=== PATIENT | male | born 1945 | race Caucasian/White ===

== ENCOUNTER 2021-08-08 11:47 | Inpatient (IN) | payer OTHER ==
[2021-08-08] MEDS ORDERED: SODIUM CHLORIDE 0.9% 500 ML INFUS.BAG IV ONE (15:22)
[2021-08-08 15:27] LABS: BASO % 0.1 % (0-2.0); HEMATOCRIT 41.3 % (35.4-49); HEMOGLOBIN 14.2 GM/dL (11.7-16.9); LYMPH % 3.5 % (8-40); MCH 30.7 pg (25.7-33.7); MCHC 34.3 g/dl (32.0-35.9); MEAN CELL VOLUME 89.5 fl (80-96); MEAN PLT VOLUME 8.8 fl (7.5-11.1); MONO % 5.6 % (3.8-10.2); NEUT % 90.8 % (42.8-82.8); PLATELET COUNT 193 10^3/uL (134-434); RBC 4.61 M/mm3 (4.00-5.60); RDW 13.4 % (11.9-15.9); WHITE BLOOD COUNT 15.3 K/mm3 (4.0-10.0)
[2021-08-08 15:41] LABS: ALBUMIN 3.9 g/dl (3.4-5.0); CALCIUM 9.6 mg/dL (8.5-10.1)
[2021-08-08 15:42] LABS: BLOOD UREA NITROGEN 26.7 mg/dL (7-18); MAGNESIUM 2.6 mg/dL (1.8-2.4)
[2021-08-08 15:44] LABS: CREATININE 0.9 mg/dL (0.55-1.3)
[2021-08-08 15:45] LABS: PHOSPHOROUS 3.1 mg/dL (2.5-4.9)
[2021-08-08 15:46] LABS: BILIRUBIN,TOTAL 0.7 mg/dL (0.2-1); TOT PROT 7.7 g/dl (6.4-8.2)
[2021-08-08] MEDS ORDERED: ACETAMINOPHEN 1000 MG/100 ML BAG IVPB ONE (19:00)
[2021-08-08] MEDS ORDERED: CEFTRIAXONE 2,000 MG in DEXTROSE 5%-WATER - 50 ML IVPB ONE (19:14)
[2021-08-08] MEDS ORDERED: VANCOMYCIN 1,000 MG in DEXTROSE 5%-WATER - 250 ML IVPB ONE (19:14)
[2021-08-08] MEDS ORDERED: AMPICILLIN - 2 GM in SODIUM CHLORIDE 100 ML IVPB ONE (19:16)
[2021-08-08] MEDS ORDERED: ACYCLOVIR INJECTION 800 MG in DEXTROSE 5%-WATER - 100 ML IVPB ONE (19:18)
[2021-08-08] MEDS ORDERED: DEXAMETHASONE SOD PHOSPHATE 10 MG/1 ML VIAL IVPUSH ONE (19:19)
[2021-08-08 19:26] LABS: EPI CELLS 25 /uL (0-25.1); HYALINE CASTS 1 /uL (0-3.1); PH,URINE 6.5 (5.0-8.0); URINE APPEARANCE CLEAR; URINE BACTERIA >9,000 /uL (0-1359); URINE BILIRUBIN NEGATIVE (NEGATIVE); URINE COLOR YELLOW; URINE GLUCOSE (UA) NEGATIVE (NEGATIVE); URINE KETONE 1+ (NEGATIVE); URINE LEUK ESTERASE TRACE (NEGATIVE); URINE NITRITE NEGATIVE (NEGATIVE); URINE PROTEIN 1+ (NEGATIVE); URINE RBC 151 /uL (0-23.9); URINE WBC 34 /uL (0-25.8)
[2021-08-08] MEDS ORDERED: ACYCLOVIR INJECTION 800 MG in DEXTROSE 5%-WATER - 250 ML IVPB ONE (19:30)
[2021-08-08] MEDS ORDERED: ACETAMINOPHEN INJECTION 100 ML IVPB ONE (19:46)
[2021-08-08] MEDS ORDERED: DEXAMETHASONE SOD PHOSPHATE 10 MG/1 ML VIAL ONE (21:55)
[2021-08-08] MEDS ORDERED: CEFTRIAXONE 2 GM/100 ML BAG IVPB ONE (21:56)
[2021-08-08] MEDS ORDERED: AMPICILLIN SODIUM 2 GM VIAL ONE (23:05)
[2021-08-08] MEDS ORDERED: VANCOMYCIN 1 GRAM (PRE-DOCKED) 1,000 MG/250 ML BAG IVPB ONE (23:06)
[2021-08-09] MEDS: ACYCLOVIR INJECTION 800 MG in DEXTROSE 5%-WATER - 250 ML IVPB SCH ×3 (01:00→20:11)
[2021-08-09] MEDS: AMPICILLIN - 2 GM in SODIUM CHLORIDE 100 ML IVPB SCH ×6 (01:00→21:59)
[2021-08-09] MEDS ORDERED: AMPICILLIN SODIUM 2 GM VIAL ONE ×4 (05:27→21:47)
[2021-08-09] MEDS ORDERED: SODIUM CHLORIDE 100 ML IVPB ONE ×4 (05:27→21:47)
[2021-08-09 07:15] LABS: HEMATOCRIT 35.4 % (35.4-49); HEMOGLOBIN 12.4 GM/dL (11.7-16.9); MCH 31.3 pg (25.7-33.7); MEAN CELL VOLUME 89.4 fl (80-96); MEAN PLT VOLUME 8.5 fl (7.5-11.1); PLATELET COUNT 161 10^3/uL (134-434); RBC 3.96 M/mm3 (4.00-5.60); RDW 13.5 % (11.9-15.9); WHITE BLOOD COUNT 16.1 K/mm3 (4.0-10.0)
[2021-08-09 07:45] LABS: CALCIUM 8.9 mg/dL (8.5-10.1)
[2021-08-09 07:46] LABS: BLOOD UREA NITROGEN 19.8 mg/dL (7-18); MAGNESIUM 2.5 mg/dL (1.8-2.4)
[2021-08-09 07:49] LABS: CREATININE 0.8 mg/dL (0.55-1.3); PHOSPHOROUS 2.4 mg/dL (2.5-4.9)
[2021-08-09 07:51] LABS: BILIRUBIN,TOTAL 0.5 mg/dL (0.2-1); TOT PROT 6.1 g/dl (6.4-8.2)
[2021-08-09 07:54] LABS: ALBUMIN 2.9 g/dl (3.4-5.0)
[2021-08-09] MEDS ORDERED: SODIUM CHLORIDE 1,000 ML IV SCH (08:00)
[2021-08-09 08:50] LABS: ANISOCYTOSIS 1+; MACROCYTOSIS 0
[2021-08-09] MEDS ORDERED: DEXTROSE 5%-WATER 100 ML IVPB ONE ×2 (09:19→21:49)
[2021-08-09] MEDS: SODIUM CHLORIDE 1,000 ML IV SCH (09:33)
[2021-08-09] MEDS ORDERED: VANCOMYCIN 1 GM in D5W (PRE-DOCKED) 1,000 MG/250 ML IVPB SCH ×2 (10:00→22:00)
[2021-08-09] MEDS: CEFTRIAXONE 2 GM in DEXTROSE 5%-WATER 100 ML IVPB SCH ×2 (10:30→22:00)
[2021-08-09] MEDS: ENOXAPARIN NA (PORCINE) 40 MG/0.4 ML DISP.SYRIN SQ SCH ×2 (11:28→13:45)
[2021-08-09] MEDS: VANCOMYCIN 1 GM/200 ML PREMIX BAG IVPB SCH (16:26)
[2021-08-09] MEDS ORDERED: HALOPERIDOL LACTATE 5 MG/ML IM ONE (21:35)
[2021-08-10] MEDS: VANCOMYCIN 1 GM/200 ML PREMIX BAG IVPB SCH (01:27)
[2021-08-10] MEDS ORDERED: AMPICILLIN SODIUM 2 GM VIAL ONE ×6 (02:50→21:29)
[2021-08-10] MEDS ORDERED: SODIUM CHLORIDE 100 ML IVPB ONE ×6 (02:50→21:29)
[2021-08-10] MEDS: ACYCLOVIR INJECTION 800 MG in DEXTROSE 5%-WATER - 250 ML IVPB SCH ×3 (02:54→18:34)
[2021-08-10] MEDS: AMPICILLIN - 2 GM in SODIUM CHLORIDE 100 ML IVPB SCH ×6 (02:54→22:31)
[2021-08-10] MEDS ORDERED: DEXTROSE 5%-WATER 100 ML IVPB ONE ×2 (08:38→21:29)
[2021-08-10 08:50] LABS: BASO % 0.1 % (0-2.0); HEMATOCRIT 34.8 % (35.4-49); HEMOGLOBIN 12.2 GM/dL (11.7-16.9); LYMPH % 6.7 % (8-40); MCH 31.4 pg (25.7-33.7); MCHC 35.1 g/dl (32.0-35.9); MEAN CELL VOLUME 89.4 fl (80-96); MEAN PLT VOLUME 8.4 fl (7.5-11.1); NEUT % 86.2 % (42.8-82.8); PLATELET COUNT 161 10^3/uL (134-434); RBC 3.89 M/mm3 (4.00-5.60); RDW 13.2 % (11.9-15.9); WHITE BLOOD COUNT 10.1 K/mm3 (4.0-10.0)
[2021-08-10] MEDS: SODIUM CHLORIDE 1,000 ML IV SCH (08:54)
[2021-08-10] MEDS: ENOXAPARIN NA (PORCINE) 40 MG/0.4 ML DISP.SYRIN SQ SCH (09:00)
[2021-08-10 09:03] LABS: CALCIUM 8.7 mg/dL (8.5-10.1)
[2021-08-10 09:04] LABS: ALBUMIN 2.9 g/dl (3.4-5.0); MAGNESIUM 2.4 mg/dL (1.8-2.4)
[2021-08-10 09:07] LABS: CREATININE 0.8 mg/dL (0.55-1.3); PHOSPHOROUS 2.2 mg/dL (2.5-4.9)
[2021-08-10 09:09] LABS: BILIRUBIN,TOTAL 0.4 mg/dL (0.2-1)
[2021-08-10] MEDS ORDERED: POTASSIUM CHLORIDE ORAL LIQUID 20 MEQ/15 ML PO ONE (09:12)
[2021-08-10] MEDS: CEFTRIAXONE 2 GM in DEXTROSE 5%-WATER 100 ML IVPB SCH ×2 (10:30→22:31)
[2021-08-10] MEDS ORDERED: NAPH,MB-DB/K PH,MBDB POWDER PACKET PO ONE (14:16)
[2021-08-11] MEDS: ACYCLOVIR INJECTION 800 MG in DEXTROSE 5%-WATER - 250 ML IVPB SCH ×3 (01:15→18:13)
[2021-08-11] MEDS: AMPICILLIN - 2 GM in SODIUM CHLORIDE 100 ML IVPB SCH ×6 (01:15→21:36)
[2021-08-11] MEDS ORDERED: AMPICILLIN SODIUM 2 GM VIAL ONE ×5 (05:32→21:26)
[2021-08-11] MEDS ORDERED: SODIUM CHLORIDE 100 ML IVPB ONE ×5 (05:32→21:27)
[2021-08-11 08:42] LABS: BASO % 0.1 % (0-2.0); EOS % 0.1 % (0-4.5); HEMATOCRIT 37.4 % (35.4-49); HEMOGLOBIN 12.6 GM/dL (11.7-16.9); LYMPH % 9.7 % (8-40); MCH 30.5 pg (25.7-33.7); MCHC 33.8 g/dl (32.0-35.9); MEAN CELL VOLUME 90.3 fl (80-96); MEAN PLT VOLUME 8.8 fl (7.5-11.1); MONO % 9.6 % (3.8-10.2); NEUT % 80.5 % (42.8-82.8); PLATELET COUNT 178 10^3/uL (134-434); RBC 4.15 M/mm3 (4.00-5.60); RDW 13.1 % (11.9-15.9); WHITE BLOOD COUNT 6.4 K/mm3 (4.0-10.0)
[2021-08-11 09:14] LABS: BLOOD UREA NITROGEN 13.5 mg/dL (7-18); CALCIUM 8.7 mg/dL (8.5-10.1); MAGNESIUM 2.3 mg/dL (1.8-2.4)
[2021-08-11 09:16] LABS: CREATININE 0.7 mg/dL (0.55-1.3); PHOSPHOROUS 3.3 mg/dL (2.5-4.9)
[2021-08-11 09:17] LABS: BILIRUBIN,TOTAL 0.4 mg/dL (0.2-1)
[2021-08-11 09:18] LABS: TOT PROT 6.2 g/dl (6.4-8.2)
[2021-08-11] MEDS ORDERED: DEXTROSE 5%-WATER 100 ML IVPB ONE ×2 (09:19→21:27)
[2021-08-11] MEDS: SODIUM CHLORIDE 1,000 ML IV SCH (10:01)
[2021-08-11] MEDS: CEFTRIAXONE 2 GM in DEXTROSE 5%-WATER 100 ML IVPB SCH ×2 (10:49→22:36)
[2021-08-12] MEDS ORDERED: AMPICILLIN SODIUM 2 GM VIAL ONE ×6 (00:41→21:50)
[2021-08-12] MEDS ORDERED: SODIUM CHLORIDE 100 ML IVPB ONE ×6 (00:41→21:50)
[2021-08-12] MEDS: AMPICILLIN - 2 GM in SODIUM CHLORIDE 100 ML IVPB SCH ×6 (01:09→22:02)
[2021-08-12] MEDS: ACYCLOVIR INJECTION 800 MG in DEXTROSE 5%-WATER - 250 ML IVPB SCH ×3 (01:44→19:24)
[2021-08-12] MEDS: SODIUM CHLORIDE 1,000 ML IV SCH ×2 (03:06→09:18)
[2021-08-12] MEDS: LORazepam 2 MG/ML SDV VIAL IVPUSH PRN ×2 (08:30→12:01)
[2021-08-12] MEDS ORDERED: DEXTROSE 5%-WATER 100 ML IVPB ONE ×2 (09:08→21:51)
[2021-08-12] MEDS: ENOXAPARIN NA (PORCINE) 40 MG/0.4 ML DISP.SYRIN SQ SCH (09:18)
[2021-08-12 09:50] LABS: HEMATOCRIT 37.2 % (35.4-49); HEMOGLOBIN 12.9 GM/dL (11.7-16.9); MCHC 34.7 g/dl (32.0-35.9); MEAN CELL VOLUME 89.3 fl (80-96); MEAN PLT VOLUME 7.9 fl (7.5-11.1); PLATELET COUNT 194 10^3/uL (134-434); RBC 4.17 M/mm3 (4.00-5.60)
[2021-08-12] MEDS: CEFTRIAXONE 2 GM in DEXTROSE 5%-WATER 100 ML IVPB SCH ×2 (10:00→22:50)
[2021-08-12 10:09] LABS: CALCIUM 8.7 mg/dL (8.5-10.1)
[2021-08-12 10:10] LABS: ALBUMIN 2.9 g/dl (3.4-5.0); BLOOD UREA NITROGEN 12.5 mg/dL (7-18)
[2021-08-12 10:12] LABS: CREATININE 0.7 mg/dL (0.55-1.3)
[2021-08-12 10:14] LABS: BILIRUBIN,TOTAL 0.5 mg/dL (0.2-1); TOT PROT 6.2 g/dl (6.4-8.2)
[2021-08-12] MEDS ORDERED: POTASSIUM CHLORIDE ORAL LIQUID 20 MEQ/15 ML PO ONE (11:13)
[2021-08-13] MEDS ORDERED: AMPICILLIN SODIUM 2 GM VIAL ONE ×5 (00:55→21:22)
[2021-08-13] MEDS ORDERED: SODIUM CHLORIDE 100 ML IVPB ONE ×5 (00:56→21:22)
[2021-08-13] MEDS: AMPICILLIN - 2 GM in SODIUM CHLORIDE 100 ML IVPB SCH ×6 (01:10→21:36)
[2021-08-13] MEDS: ACYCLOVIR INJECTION 800 MG in DEXTROSE 5%-WATER - 250 ML IVPB SCH ×3 (02:15→18:30)
[2021-08-13 09:03] LABS: HEMATOCRIT 37.6 % (35.4-49); HEMOGLOBIN 12.8 GM/dL (11.7-16.9); MCH 30.1 pg (25.7-33.7); MEAN CELL VOLUME 88.5 fl (80-96); MEAN PLT VOLUME 8.3 fl (7.5-11.1); PLATELET COUNT 210 10^3/uL (134-434); RBC 4.25 M/mm3 (4.00-5.60); RDW 12.9 % (11.9-15.9); WHITE BLOOD COUNT 6.1 K/mm3 (4.0-10.0)
[2021-08-13] MEDS ORDERED: DEXTROSE 5%-WATER 100 ML IVPB ONE ×2 (09:13→21:22)
[2021-08-13] MEDS: SODIUM CHLORIDE 1,000 ML IV SCH (09:28)
[2021-08-13 09:36] LABS: BLOOD UREA NITROGEN 11.6 mg/dL (7-18); CALCIUM 8.8 mg/dL (8.5-10.1)
[2021-08-13 09:38] LABS: CREATININE 0.6 mg/dL (0.55-1.3)
[2021-08-13] MEDS ORDERED: POTASSIUM CHLORIDE ORAL LIQUID 20 MEQ/15 ML PO ONE (10:15)
[2021-08-13] MEDS: CEFTRIAXONE 2 GM in DEXTROSE 5%-WATER 100 ML IVPB SCH ×2 (11:46→22:22)
[2021-08-13 18:36] LABS: BF GLUCOSE (CSF ONLY) 70 mg/dL (40-70)
[2021-08-13 18:38] LABS: CSF APPEARANCE CLEAR (CLEAR); CSF COLOR COLORLESS (COLORLESS); CSF WBC 0 mm3 (0-5)
[2021-08-14] MEDS ORDERED: AMPICILLIN SODIUM 2 GM VIAL ONE ×5 (00:47→17:04)
[2021-08-14] MEDS ORDERED: SODIUM CHLORIDE 100 ML IVPB ONE ×5 (00:47→17:04)
[2021-08-14] MEDS: ACYCLOVIR INJECTION 800 MG in DEXTROSE 5%-WATER - 250 ML IVPB SCH ×4 (01:23→17:45)
[2021-08-14] MEDS: AMPICILLIN - 2 GM in SODIUM CHLORIDE 100 ML IVPB SCH ×5 (03:12→17:07)
[2021-08-14 08:50] LABS: BASO % 0.2 % (0-2.0); EOS % 0.1 % (0-4.5); HEMATOCRIT 37.6 % (35.4-49); HEMOGLOBIN 13.2 GM/dL (11.7-16.9); LYMPH % 13.1 % (8-40); MCH 31.2 pg (25.7-33.7); MCHC 35.1 g/dl (32.0-35.9); MEAN CELL VOLUME 88.9 fl (80-96); MEAN PLT VOLUME 7.7 fl (7.5-11.1); MONO % 9.6 % (3.8-10.2); PLATELET COUNT 218 10^3/uL (134-434); RBC 4.23 M/mm3 (4.00-5.60); WHITE BLOOD COUNT 7.2 K/mm3 (4.0-10.0)
[2021-08-14 09:30] LABS: CALCIUM 8.7 mg/dL (8.5-10.1)
[2021-08-14 09:31] LABS: BLOOD UREA NITROGEN 11.8 mg/dL (7-18); MAGNESIUM 2.4 mg/dL (1.8-2.4)
[2021-08-14 09:34] LABS: CREATININE 0.7 mg/dL (0.55-1.3); PHOSPHOROUS 2.9 mg/dL (2.5-4.9); TOT PROT 6.2 g/dl (6.4-8.2)
[2021-08-14 09:36] LABS: BILIRUBIN,TOTAL 0.8 mg/dL (0.2-1)
[2021-08-14] MEDS ORDERED: DEXTROSE 5%-WATER 100 ML IVPB ONE ×2 (09:49→23:43)
[2021-08-14] MEDS: ENOXAPARIN NA (PORCINE) 40 MG/0.4 ML DISP.SYRIN SQ SCH (09:53)
[2021-08-14] MEDS: CEFTRIAXONE 2 GM in DEXTROSE 5%-WATER 100 ML IVPB SCH ×2 (09:54→11:49)
[2021-08-15] MEDS ORDERED: AMPICILLIN SODIUM 2 GM VIAL ONE ×8 (00:04→21:44)
[2021-08-15] MEDS ORDERED: SODIUM CHLORIDE 100 ML IVPB ONE ×7 (00:04→21:44)
[2021-08-15] MEDS: AMPICILLIN - 2 GM in SODIUM CHLORIDE 100 ML IVPB SCH ×7 (00:04→21:55)
[2021-08-15] MEDS: SODIUM CHLORIDE 1,000 ML IV SCH (00:06)
[2021-08-15] MEDS: CEFTRIAXONE 2 GM in DEXTROSE 5%-WATER 100 ML IVPB SCH ×3 (00:25→23:51)
[2021-08-15] MEDS: ACYCLOVIR INJECTION 800 MG in DEXTROSE 5%-WATER - 250 ML IVPB SCH ×3 (02:06→18:23)
[2021-08-15] MEDS: LORazepam 2 MG/ML SDV VIAL IVPUSH PRN ×2 (06:46→21:58)
[2021-08-15] MEDS ORDERED: DEXTROSE 5%-WATER 100 ML IVPB ONE ×2 (09:25→23:50)
[2021-08-15 09:31] LABS: BASO % 0.3 % (0-2.0); EOS % 0.2 % (0-4.5); HEMATOCRIT 34.3 % (35.4-49); HEMOGLOBIN 12.2 GM/dL (11.7-16.9); LYMPH % 12.3 % (8-40); MCH 31.3 pg (25.7-33.7); MCHC 35.6 g/dl (32.0-35.9); MEAN PLT VOLUME 7.6 fl (7.5-11.1); NEUT % 74.2 % (42.8-82.8); PLATELET COUNT 226 10^3/uL (134-434); RDW 12.9 % (11.9-15.9); WHITE BLOOD COUNT 5.5 K/mm3 (4.0-10.0)
[2021-08-15] MEDS: ENOXAPARIN NA (PORCINE) 40 MG/0.4 ML DISP.SYRIN SQ SCH (10:59)
[2021-08-15] MEDS ORDERED: POTASSIUM CHLORIDE ORAL LIQUID 20 MEQ/15 ML PO ONE (11:04)
[2021-08-15 11:10] LABS: BLOOD UREA NITROGEN 14.9 mg/dL (7-18)
[2021-08-15 11:11] LABS: ALBUMIN 2.8 g/dl (3.4-5.0); CALCIUM 8.5 mg/dL (8.5-10.1); MAGNESIUM 2.3 mg/dL (1.8-2.4)
[2021-08-15 11:14] LABS: CREATININE 0.8 mg/dL (0.55-1.3); PHOSPHOROUS 2.8 mg/dL (2.5-4.9)
[2021-08-15 11:16] LABS: BILIRUBIN,TOTAL 0.5 mg/dL (0.2-1); TOT PROT 5.8 g/dl (6.4-8.2)
[2021-08-15 15:29] VITALS: BMI 23.0
[2021-08-16] MEDS ORDERED: AMPICILLIN SODIUM 2 GM VIAL ONE ×6 (01:14→21:29)
[2021-08-16] MEDS ORDERED: SODIUM CHLORIDE 100 ML IVPB ONE ×6 (01:14→21:30)
[2021-08-16] MEDS: AMPICILLIN - 2 GM in SODIUM CHLORIDE 100 ML IVPB SCH ×6 (01:15→21:44)
[2021-08-16] MEDS: ACYCLOVIR INJECTION 800 MG in DEXTROSE 5%-WATER - 250 ML IVPB SCH ×3 (02:01→20:14)
[2021-08-16] MEDS: SODIUM CHLORIDE 1,000 ML IV SCH ×2 (06:02→06:03)
[2021-08-16 08:34] LABS: BASO % 0.5 % (0-2.0); EOS % 1.2 % (0-4.5); HEMATOCRIT 38.4 % (35.4-49); HEMOGLOBIN 13.4 GM/dL (11.7-16.9); LYMPH % 17.2 % (8-40); MCHC 34.8 g/dl (32.0-35.9); MEAN CELL VOLUME 89.3 fl (80-96); MEAN PLT VOLUME 7.6 fl (7.5-11.1); MONO % 13.3 % (3.8-10.2); NEUT % 67.8 % (42.8-82.8); PLATELET COUNT 260 10^3/uL (134-434); RDW 13.1 % (11.9-15.9)
[2021-08-16] MEDS ORDERED: DEXTROSE 5%-WATER 100 ML IVPB ONE ×2 (08:57→23:05)
[2021-08-16] MEDS: CEFTRIAXONE 2 GM in DEXTROSE 5%-WATER 100 ML IVPB SCH ×2 (09:02→23:11)
[2021-08-16] MEDS: LORazepam 2 MG/ML SDV VIAL IVPUSH PRN (09:03)
[2021-08-16] MEDS: ENOXAPARIN NA (PORCINE) 40 MG/0.4 ML DISP.SYRIN SQ SCH (09:03)
[2021-08-16 09:22] LABS: BLOOD UREA NITROGEN 15.2 mg/dL (7-18); CALCIUM 8.9 mg/dL (8.5-10.1); MAGNESIUM 2.5 mg/dL (1.8-2.4)
[2021-08-16 09:24] LABS: BILIRUBIN,TOTAL 0.3 mg/dL (0.2-1); PHOSPHOROUS 3.4 mg/dL (2.5-4.9); TOT PROT 6.3 g/dl (6.4-8.2)
[2021-08-16 09:25] LABS: CREATININE 0.7 mg/dL (0.55-1.3)
[2021-08-16] MEDS: MULTIVITAMINS (DAILY MVI) TABLET (FP) PO SCH (10:55)
[2021-08-17] MEDS ORDERED: AMPICILLIN SODIUM 2 GM VIAL ONE ×2 (01:05→06:02)
[2021-08-17] MEDS ORDERED: SODIUM CHLORIDE 100 ML IVPB ONE ×2 (01:05→06:03)
[2021-08-17] MEDS: AMPICILLIN - 2 GM in SODIUM CHLORIDE 100 ML IVPB SCH ×4 (01:48→16:34)
[2021-08-17] MEDS: ACYCLOVIR INJECTION 800 MG in DEXTROSE 5%-WATER - 250 ML IVPB SCH ×2 (02:28→10:50)
[2021-08-17 08:01] LABS: BASO % 0.3 % (0-2.0); EOS % 1.5 % (0-4.5); HEMATOCRIT 36.9 % (35.4-49); HEMOGLOBIN 12.9 GM/dL (11.7-16.9); LYMPH % 13.3 % (8-40); MEAN CELL VOLUME 88.5 fl (80-96); MEAN PLT VOLUME 7.3 fl (7.5-11.1); MONO % 11.2 % (3.8-10.2); NEUT % 73.7 % (42.8-82.8); PLATELET COUNT 272 10^3/uL (134-434); RBC 4.17 M/mm3 (4.00-5.60); WHITE BLOOD COUNT 6.3 K/mm3 (4.0-10.0)
[2021-08-17 08:25] LABS: CALCIUM 8.6 mg/dL (8.5-10.1)
[2021-08-17 08:26] LABS: ALBUMIN 3.1 g/dl (3.4-5.0); MAGNESIUM 2.5 mg/dL (1.8-2.4)
[2021-08-17 08:28] LABS: PHOSPHOROUS 3.3 mg/dL (2.5-4.9)
[2021-08-17 08:29] LABS: CREATININE 0.8 mg/dL (0.55-1.3)
[2021-08-17 08:30] LABS: BILIRUBIN,TOTAL 0.5 mg/dL (0.2-1); TOT PROT 6.2 g/dl (6.4-8.2)
[2021-08-17] MEDS: MULTIVITAMINS (DAILY MVI) TABLET (FP) PO SCH (10:49)
[2021-08-17] MEDS ORDERED: DEXTROSE 5%-WATER 100 ML IVPB ONE (10:51)
[2021-08-17] MEDS: ENOXAPARIN NA (PORCINE) 40 MG/0.4 ML DISP.SYRIN SQ SCH (10:53)
[2021-08-17] MEDS: POLYETHYLENE GLYCOL (HEALTHYLAX) 3350 17 GM PACKET PO SCH ×2 (11:40→22:27)
[2021-08-17] MEDS: DOCUSATE SODIUM 100 MG CAPSULE (FP) PO SCH (11:40)
[2021-08-17] MEDS: CEFTRIAXONE 2 GM in DEXTROSE 5%-WATER 100 ML IVPB SCH (11:43)
[2021-08-17] MEDS: SODIUM CHLORIDE 1,000 ML IV SCH ×2 (16:33→22:45)
[2021-08-17] MEDS: SENNOSIDES 8.6MG TABLET (FP) PO SCH (22:27)
[2021-08-18] MEDS: POLYETHYLENE GLYCOL (HEALTHYLAX) 3350 17 GM PACKET PO SCH ×3 (10:28→23:06)
[2021-08-18] MEDS: ENOXAPARIN NA (PORCINE) 40 MG/0.4 ML DISP.SYRIN SQ SCH (10:29)
[2021-08-18] MEDS: DOCUSATE SODIUM 100 MG CAPSULE (FP) PO SCH ×2 (10:29→10:52)
[2021-08-18] MEDS: MULTIVITAMINS (DAILY MVI) TABLET (FP) PO SCH ×2 (10:29→10:52)
[2021-08-18] MEDS: levETIRAcetam 500 MG/5 ML INJECTION VIAL IVPB SCH ×2 (12:07→23:04)
[2021-08-18 13:08] LABS: BASO % 0.4 % (0-2.0); EOS % 0.4 % (0-4.5); HEMATOCRIT 37.1 % (35.4-49); LYMPH % 10.8 % (8-40); MCH 31.2 pg (25.7-33.7); MEAN CELL VOLUME 89.2 fl (80-96); MEAN PLT VOLUME 7.3 fl (7.5-11.1); MONO % 8.4 % (3.8-10.2); PLATELET COUNT 301 10^3/uL (134-434); RBC 4.16 M/mm3 (4.00-5.60); RDW 13.3 % (11.9-15.9); WHITE BLOOD COUNT 7.6 K/mm3 (4.0-10.0)
[2021-08-18 13:27] LABS: CALCIUM 8.9 mg/dL (8.5-10.1); MAGNESIUM 2.7 mg/dL (1.8-2.4)
[2021-08-18 13:30] LABS: PHOSPHOROUS 2.8 mg/dL (2.5-4.9)
[2021-08-18 13:31] LABS: CREATININE 0.9 mg/dL (0.55-1.3)
[2021-08-18 13:32] LABS: BILIRUBIN,TOTAL 0.3 mg/dL (0.2-1); TOT PROT 6.3 g/dl (6.4-8.2)
[2021-08-18 15:17] LABS: BLOOD UREA NITROGEN 25.1 mg/dL (7-18)
[2021-08-18] MEDS: SODIUM CHLORIDE 1,000 ML IV SCH ×2 (16:39→23:06)
[2021-08-18] MEDS: SENNOSIDES 8.6MG TABLET (FP) PO SCH (23:06)
[2021-08-18] MEDS ORDERED: ENALAPRILAT DIHYDRATE 1.25 MG/1 ML VIAL IVPB ONE (23:25)
[2021-08-19] MEDS ORDERED: METOPROLOL TARTRATE 5 MG/5 ML VIAL IVPB ONE (01:50)
[2021-08-19 09:10] LABS: BASO % 0.2 % (0-2.0); EOS % 0.3 % (0-4.5); HEMATOCRIT 37.2 % (35.4-49); HEMOGLOBIN 12.9 GM/dL (11.7-16.9); LYMPH % 7.6 % (8-40); MCH 31.1 pg (25.7-33.7); MCHC 34.6 g/dl (32.0-35.9); MEAN PLT VOLUME 7.3 fl (7.5-11.1); MONO % 6.4 % (3.8-10.2); NEUT % 85.5 % (42.8-82.8); PLATELET COUNT 289 10^3/uL (134-434); RBC 4.14 M/mm3 (4.00-5.60); RDW 13.2 % (11.9-15.9); WHITE BLOOD COUNT 9.4 K/mm3 (4.0-10.0)
[2021-08-19 09:28] LABS: BLOOD UREA NITROGEN 28.2 mg/dL (7-18); CALCIUM 9.1 mg/dL (8.5-10.1); PHOSPHOROUS 3.2 mg/dL (2.5-4.9)
[2021-08-19 09:29] LABS: MAGNESIUM 2.8 mg/dL (1.8-2.4)
[2021-08-19 09:30] LABS: BILIRUBIN,TOTAL 0.4 mg/dL (0.2-1); TOT PROT 6.4 g/dl (6.4-8.2)
[2021-08-19 09:31] LABS: CREATININE 0.8 mg/dL (0.55-1.3)
[2021-08-19] MEDS: DOCUSATE SODIUM 100 MG CAPSULE (FP) PO SCH (09:36)
[2021-08-19] MEDS: POLYETHYLENE GLYCOL (HEALTHYLAX) 3350 17 GM PACKET PO SCH ×2 (09:36→23:07)
[2021-08-19] MEDS: MULTIVITAMINS (DAILY MVI) TABLET (FP) PO SCH (09:37)
[2021-08-19] MEDS: levETIRAcetam 500 MG/5 ML INJECTION VIAL IVPB SCH ×2 (09:38→23:05)
[2021-08-19] MEDS: ENOXAPARIN NA (PORCINE) 40 MG/0.4 ML DISP.SYRIN SQ SCH (09:39)
[2021-08-19] MEDS: SODIUM CHLORIDE 1,000 ML IV SCH (17:38)
[2021-08-19] MEDS: SENNOSIDES 8.6MG TABLET (FP) PO SCH (23:07)
[2021-08-20] MEDS: SODIUM CHLORIDE 1,000 ML IV SCH (10:19)
[2021-08-20] MEDS: POLYETHYLENE GLYCOL (HEALTHYLAX) 3350 17 GM PACKET PO SCH ×2 (10:20→22:18)
[2021-08-20] MEDS: DOCUSATE SODIUM 100 MG CAPSULE (FP) PO SCH (10:20)
[2021-08-20] MEDS: ENOXAPARIN NA (PORCINE) 40 MG/0.4 ML DISP.SYRIN SQ SCH (10:21)
[2021-08-20] MEDS: MULTIVITAMINS (DAILY MVI) TABLET (FP) PO SCH (10:22)
[2021-08-20] MEDS: levETIRAcetam 500 MG/5 ML INJECTION VIAL IVPB SCH ×2 (10:33→22:09)
[2021-08-20 12:35] LABS: EPI CELLS 13 /uL (0-25.1); HYALINE CASTS 6 /uL (0-3.1); URINE APPEARANCE CLEAR; URINE BACTERIA 1 /uL (0-1359); URINE BILIRUBIN NEGATIVE (NEGATIVE); URINE COLOR YELLOW; URINE GLUCOSE (UA) NEGATIVE (NEGATIVE); URINE KETONE TRACE (NEGATIVE); URINE LEUK ESTERASE NEGATIVE (NEGATIVE); URINE NITRITE NEGATIVE (NEGATIVE); URINE PROTEIN TRACE (NEGATIVE); URINE RBC 84 /uL (0-23.9); URINE UROBILINOGEN 0.2 mg/dL (0.2-1.0); URINE WBC 28 /uL (0-25.8)
[2021-08-20] MEDS: ACETAMINOPHEN 1000 MG/100 ML BAG IVPB PRN (20:58)
[2021-08-20] MEDS: SENNOSIDES 8.6MG TABLET (FP) PO SCH (22:10)
[2021-08-21] MEDS: SODIUM CHLORIDE 1,000 ML IV SCH ×3 (01:24→22:41)
[2021-08-21 08:44] LABS: BASO % 0.3 % (0-2.0); EOS % 0.7 % (0-4.5); HEMATOCRIT 36.8 % (35.4-49); HEMOGLOBIN 12.3 GM/dL (11.7-16.9); LYMPH % 8.3 % (8-40); MCH 30.8 pg (25.7-33.7); MCHC 33.4 g/dl (32.0-35.9); MEAN CELL VOLUME 92.2 fl (80-96); MEAN PLT VOLUME 7.7 fl (7.5-11.1); MONO % 7.1 % (3.8-10.2); NEUT % 83.6 % (42.8-82.8); PLATELET COUNT 260 10^3/uL (134-434); RBC 3.99 M/mm3 (4.00-5.60); RDW 13.3 % (11.9-15.9); WHITE BLOOD COUNT 8.8 K/mm3 (4.0-10.0)
[2021-08-21] MEDS: POLYETHYLENE GLYCOL (HEALTHYLAX) 3350 17 GM PACKET PO SCH ×2 (09:08→22:40)
[2021-08-21] MEDS: DOCUSATE SODIUM 100 MG CAPSULE (FP) PO SCH (09:08)
[2021-08-21] MEDS: MULTIVITAMINS (DAILY MVI) TABLET (FP) PO SCH (09:08)
[2021-08-21] MEDS: levETIRAcetam 500 MG/5 ML INJECTION VIAL IVPB SCH ×2 (09:08→22:40)
[2021-08-21] MEDS: ENOXAPARIN NA (PORCINE) 40 MG/0.4 ML DISP.SYRIN SQ SCH (09:08)
[2021-08-21 09:09] LABS: ALBUMIN 2.7 g/dl (3.4-5.0)
[2021-08-21 09:12] LABS: CALCIUM 8.6 mg/dL (8.5-10.1)
[2021-08-21 09:13] LABS: BLOOD UREA NITROGEN 32.2 mg/dL (7-18); CREATININE 0.7 mg/dL (0.55-1.3); MAGNESIUM 2.4 mg/dL (1.8-2.4); PHOSPHOROUS 2.8 mg/dL (2.5-4.9)
[2021-08-21 09:14] LABS: BILIRUBIN,TOTAL 0.5 mg/dL (0.2-1); TOT PROT 5.9 g/dl (6.4-8.2)
[2021-08-21] MEDS ORDERED: LACTATED RINGERS SOLUTION 1000 ML INFUS.BAG IV ONE (10:59)
[2021-08-21] MEDS: SENNOSIDES 8.6MG TABLET (FP) PO SCH (22:40)
[2021-08-21] MEDS: ACETAMINOPHEN 1000 MG/100 ML BAG IVPB PRN (23:58)
[2021-08-22 09:01] LABS: BASO % 0.3 % (0-2.0); EOS % 1.2 % (0-4.5); HEMATOCRIT 34.7 % (35.4-49); HEMOGLOBIN 11.9 GM/dL (11.7-16.9); LYMPH % 7.2 % (8-40); MCH 31.4 pg (25.7-33.7); MCHC 34.3 g/dl (32.0-35.9); MEAN CELL VOLUME 91.6 fl (80-96); NEUT % 83.3 % (42.8-82.8); PLATELET COUNT 271 10^3/uL (134-434); RBC 3.79 M/mm3 (4.00-5.60); RDW 13.3 % (11.9-15.9)
[2021-08-22 10:04] LABS: ALBUMIN 2.6 g/dl (3.4-5.0); BLOOD UREA NITROGEN 27.5 mg/dL (7-18); CALCIUM 8.6 mg/dL (8.5-10.1); MAGNESIUM 2.3 mg/dL (1.8-2.4)
[2021-08-22 10:07] LABS: CREATININE 0.6 mg/dL (0.55-1.3); PHOSPHOROUS 2.8 mg/dL (2.5-4.9)
[2021-08-22 10:09] LABS: BILIRUBIN,TOTAL 0.4 mg/dL (0.2-1); TOT PROT 5.8 g/dl (6.4-8.2)
[2021-08-22] MEDS: SODIUM CHLORIDE 1,000 ML IV SCH ×2 (10:49→13:21)
[2021-08-22] MEDS: levETIRAcetam 500 MG/5 ML INJECTION VIAL IVPB SCH ×2 (10:51→21:34)
[2021-08-22] MEDS: ENOXAPARIN NA (PORCINE) 40 MG/0.4 ML DISP.SYRIN SQ SCH (10:51)
[2021-08-22] MEDS: POLYETHYLENE GLYCOL (HEALTHYLAX) 3350 17 GM PACKET PO SCH ×2 (10:51→21:34)
[2021-08-22] MEDS: MULTIVITAMINS (DAILY MVI) TABLET (FP) PO SCH (10:52)
[2021-08-22] MEDS: DOCUSATE SODIUM 100 MG CAPSULE (FP) PO SCH (10:52)
[2021-08-22 11:30] LABS: ERYTHROCYTE SEDIMENTATION RATE 96 mm/hr (0-20)
[2021-08-22] MEDS: ACETAMINOPHEN 1000 MG/100 ML BAG IVPB PRN (21:30)
[2021-08-22] MEDS: SENNOSIDES 8.6MG TABLET (FP) PO SCH (21:35)
[2021-08-23] MEDS: SODIUM CHLORIDE 1,000 ML IV SCH ×3 (00:50→21:29)
[2021-08-23 09:28] LABS: HEMOGLOBIN 11.7 GM/dL (11.7-16.9); MCH 31.7 pg (25.7-33.7); MCHC 34.5 g/dl (32.0-35.9); MEAN CELL VOLUME 91.8 fl (80-96); MEAN PLT VOLUME 8.1 fl (7.5-11.1); PLATELET COUNT 251 10^3/uL (134-434); RDW 13.6 % (11.9-15.9); WHITE BLOOD COUNT 7.1 K/mm3 (4.0-10.0)
[2021-08-23 09:45] LABS: ALBUMIN 2.3 g/dl (3.4-5.0); CALCIUM 8.4 mg/dL (8.5-10.1)
[2021-08-23 09:49] LABS: CREATININE 0.5 mg/dL (0.55-1.3)
[2021-08-23 09:50] LABS: BILIRUBIN,TOTAL 0.5 mg/dL (0.2-1); TOT PROT 5.5 g/dl (6.4-8.2)
[2021-08-23] MEDS: MULTIVITAMINS (DAILY MVI) TABLET (FP) PO SCH (10:55)
[2021-08-23] MEDS: ENOXAPARIN NA (PORCINE) 40 MG/0.4 ML DISP.SYRIN SQ SCH (10:55)
[2021-08-23] MEDS: levETIRAcetam 500 MG/5 ML INJECTION VIAL IVPB SCH (10:55)
[2021-08-23] MEDS: POLYETHYLENE GLYCOL (HEALTHYLAX) 3350 17 GM PACKET PO SCH ×2 (10:55→21:31)
[2021-08-23] MEDS: DOCUSATE SODIUM 100 MG CAPSULE (FP) PO SCH (10:55)
[2021-08-23] MEDS: ACETAMINOPHEN 1000 MG/100 ML BAG IVPB PRN (19:32)
[2021-08-23] MEDS: SENNOSIDES 8.6MG TABLET (FP) PO SCH (21:31)
[2021-08-24 08:56] LABS: BASO % 0.4 % (0-2.0); EOS % 1.3 % (0-4.5); HEMATOCRIT 32.7 % (35.4-49); HEMOGLOBIN 10.9 GM/dL (11.7-16.9); LYMPH % 8.6 % (8-40); MCHC 33.2 g/dl (32.0-35.9); MEAN CELL VOLUME 93.1 fl (80-96); MEAN PLT VOLUME 8.3 fl (7.5-11.1); MONO % 8.9 % (3.8-10.2); NEUT % 80.8 % (42.8-82.8); PLATELET COUNT 246 10^3/uL (134-434); RBC 3.51 M/mm3 (4.00-5.60); RDW 13.7 % (11.9-15.9); WHITE BLOOD COUNT 6.5 K/mm3 (4.0-10.0)
[2021-08-24] MEDS: SODIUM CHLORIDE 1,000 ML IV SCH ×3 (09:09→18:43)
[2021-08-24] MEDS: POLYETHYLENE GLYCOL (HEALTHYLAX) 3350 17 GM PACKET PO SCH ×2 (09:10→21:22)
[2021-08-24] MEDS: ENOXAPARIN NA (PORCINE) 40 MG/0.4 ML DISP.SYRIN SQ SCH (09:10)
[2021-08-24] MEDS: DOCUSATE SODIUM 100 MG CAPSULE (FP) PO SCH (09:10)
[2021-08-24] MEDS: MULTIVITAMINS (DAILY MVI) TABLET (FP) PO SCH (09:10)
[2021-08-24 09:15] LABS: BLOOD UREA NITROGEN 22.6 mg/dL (7-18); CALCIUM 8.1 mg/dL (8.5-10.1)
[2021-08-24 09:16] LABS: ALBUMIN 2.1 g/dl (3.4-5.0); MAGNESIUM 2.2 mg/dL (1.8-2.4)
[2021-08-24 09:18] LABS: CREATININE 0.5 mg/dL (0.55-1.3)
[2021-08-24 09:20] LABS: BILIRUBIN,TOTAL 0.4 mg/dL (0.2-1); TOT PROT 5.3 g/dl (6.4-8.2)
[2021-08-24] MEDS: ACETAMINOPHEN 1000 MG/100 ML BAG IVPB PRN (17:06)
[2021-08-24] MEDS: SENNOSIDES 8.6MG TABLET (FP) PO SCH (21:22)
[2021-08-25] MEDS: SODIUM CHLORIDE 1,000 ML IV SCH ×2 (06:40→16:53)
[2021-08-25 08:50] LABS: BASO % 0.3 % (0-2.0); HEMATOCRIT 32.8 % (35.4-49); HEMOGLOBIN 11.3 GM/dL (11.7-16.9); MCH 31.6 pg (25.7-33.7); MCHC 34.4 g/dl (32.0-35.9); MEAN CELL VOLUME 91.9 fl (80-96); MEAN PLT VOLUME 8.3 fl (7.5-11.1); MONO % 8.2 % (3.8-10.2); NEUT % 82.5 % (42.8-82.8); PLATELET COUNT 230 10^3/uL (134-434); RBC 3.57 M/mm3 (4.00-5.60); RDW 13.7 % (11.9-15.9); WHITE BLOOD COUNT 6.3 K/mm3 (4.0-10.0)
[2021-08-25 09:13] LABS: ALBUMIN 2.2 g/dl (3.4-5.0); CALCIUM 8.1 mg/dL (8.5-10.1); MAGNESIUM 2.2 mg/dL (1.8-2.4)
[2021-08-25 09:14] LABS: BLOOD UREA NITROGEN 19.2 mg/dL (7-18)
[2021-08-25 09:16] LABS: PHOSPHOROUS 3.1 mg/dL (2.5-4.9)
[2021-08-25 09:17] LABS: CREATININE 0.5 mg/dL (0.55-1.3)
[2021-08-25 09:18] LABS: BILIRUBIN,TOTAL 0.5 mg/dL (0.2-1); TOT PROT 5.3 g/dl (6.4-8.2)
[2021-08-25] MEDS: ENOXAPARIN NA (PORCINE) 40 MG/0.4 ML DISP.SYRIN SQ SCH (10:45)
[2021-08-25] MEDS: MULTIVITAMINS (DAILY MVI) TABLET (FP) PO SCH (10:45)
[2021-08-25] MEDS: DOCUSATE SODIUM 100 MG CAPSULE (FP) PO SCH (10:45)
[2021-08-25] MEDS: POLYETHYLENE GLYCOL (HEALTHYLAX) 3350 17 GM PACKET PO SCH ×2 (10:45→21:33)
[2021-08-25 11:59] LABS: PH,URINE 7.5 (5.0-8.0); URINE APPEARANCE CLEAR; URINE BILIRUBIN NEGATIVE (NEGATIVE); URINE COLOR YELLOW; URINE GLUCOSE (UA) NEGATIVE (NEGATIVE); URINE KETONE NEGATIVE (NEGATIVE); URINE LEUK ESTERASE NEGATIVE (NEGATIVE); URINE NITRITE NEGATIVE (NEGATIVE); URINE PROTEIN NEGATIVE (NEGATIVE); URINE UROBILINOGEN 0.2 mg/dL (0.2-1.0)
[2021-08-25] MEDS: SENNOSIDES 8.6MG TABLET (FP) PO SCH (21:33)
[2021-08-26] MEDS: SODIUM CHLORIDE 1,000 ML IV SCH ×2 (03:12→14:17)
[2021-08-26] MEDS: MULTIVITAMINS (DAILY MVI) TABLET (FP) PO SCH (09:56)
[2021-08-26] MEDS: ENOXAPARIN NA (PORCINE) 40 MG/0.4 ML DISP.SYRIN SQ SCH (09:56)
[2021-08-26] MEDS: DOCUSATE SODIUM 100 MG CAPSULE (FP) PO SCH (09:56)
[2021-08-26] MEDS: POLYETHYLENE GLYCOL (HEALTHYLAX) 3350 17 GM PACKET PO SCH ×2 (09:56→22:26)
[2021-08-26] MEDS: SENNOSIDES 8.6MG TABLET (FP) PO SCH (22:26)
[2021-08-27] MEDS: SODIUM CHLORIDE 1,000 ML IV SCH ×2 (04:14→14:52)
[2021-08-27 08:51] LABS: BASO % 0.3 % (0-2.0); EOS % 1.4 % (0-4.5); HEMATOCRIT 32.3 % (35.4-49); HEMOGLOBIN 10.9 GM/dL (11.7-16.9); LYMPH % 9.9 % (8-40); MCH 30.8 pg (25.7-33.7); MCHC 33.8 g/dl (32.0-35.9); MEAN CELL VOLUME 91.2 fl (80-96); MEAN PLT VOLUME 8.6 fl (7.5-11.1); MONO % 8.7 % (3.8-10.2); NEUT % 79.7 % (42.8-82.8); PLATELET COUNT 272 10^3/uL (134-434); RBC 3.54 M/mm3 (4.00-5.60); RDW 13.2 % (11.9-15.9)
[2021-08-27 09:01] LABS: ALBUMIN 2.1 g/dl (3.4-5.0)
[2021-08-27 09:02] LABS: BLOOD UREA NITROGEN 17.4 mg/dL (7-18); MAGNESIUM 2.2 mg/dL (1.8-2.4)
[2021-08-27 09:04] LABS: PHOSPHOROUS 3.2 mg/dL (2.5-4.9)
[2021-08-27 09:05] LABS: CREATININE 0.6 mg/dL (0.55-1.3)
[2021-08-27 09:06] LABS: BILIRUBIN,TOTAL 0.4 mg/dL (0.2-1); TOT PROT 5.3 g/dl (6.4-8.2)
[2021-08-27] MEDS: DOCUSATE SODIUM 100 MG CAPSULE (FP) PO SCH (09:59)
[2021-08-27] MEDS: MULTIVITAMINS (DAILY MVI) TABLET (FP) PO SCH (09:59)
[2021-08-27] MEDS: POLYETHYLENE GLYCOL (HEALTHYLAX) 3350 17 GM PACKET PO SCH ×2 (09:59→22:09)
[2021-08-27] MEDS: ENOXAPARIN NA (PORCINE) 40 MG/0.4 ML DISP.SYRIN SQ SCH (10:00)
[2021-08-27] MEDS: SENNOSIDES 8.6MG TABLET (FP) PO SCH (22:09)
[2021-08-28] MEDS: SODIUM CHLORIDE 1,000 ML IV SCH ×3 (01:04→18:57)
[2021-08-28 09:43] LABS: CALCIUM 7.9 mg/dL (8.5-10.1)
[2021-08-28 09:44] LABS: BLOOD UREA NITROGEN 17.6 mg/dL (7-18)
[2021-08-28 09:46] LABS: CREATININE 0.5 mg/dL (0.55-1.3)
[2021-08-28 09:48] LABS: BILIRUBIN,TOTAL 0.4 mg/dL (0.2-1); TOT PROT 5.1 g/dl (6.4-8.2)
[2021-08-28] MEDS: POLYETHYLENE GLYCOL (HEALTHYLAX) 3350 17 GM PACKET PO SCH ×3 (09:58→21:30)
[2021-08-28] MEDS: DOCUSATE SODIUM 100 MG CAPSULE (FP) PO SCH (09:58)
[2021-08-28] MEDS: ENOXAPARIN NA (PORCINE) 40 MG/0.4 ML DISP.SYRIN SQ SCH (09:59)
[2021-08-28] MEDS: MULTIVITAMINS (DAILY MVI) TABLET (FP) PO SCH (09:59)
[2021-08-28 10:46] LABS: HEMATOCRIT 30.8 % (35.4-49); HEMOGLOBIN 10.6 GM/dL (11.7-16.9); MCH 31.5 pg (25.7-33.7); MCHC 34.4 g/dl (32.0-35.9); MEAN CELL VOLUME 91.7 fl (80-96); MEAN PLT VOLUME 8.9 fl (7.5-11.1); PLATELET COUNT 275 10^3/uL (134-434); RBC 3.36 M/mm3 (4.00-5.60); RDW 13.4 % (11.9-15.9); WHITE BLOOD COUNT 6.2 K/mm3 (4.0-10.0)
[2021-08-28] MEDS: CARBIDOPA/LEVODOPA 25/100 TABLET (FP) PO SCH ×2 (15:47→21:30)
[2021-08-28] MEDS: SENNOSIDES 8.6MG TABLET (FP) PO SCH (21:30)
[2021-08-29] MEDS: SODIUM CHLORIDE 1,000 ML IV SCH ×2 (02:28→12:03)
[2021-08-29] MEDS: CARBIDOPA/LEVODOPA 25/100 TABLET (FP) PO SCH ×3 (06:14→22:13)
[2021-08-29 09:06] LABS: HEMATOCRIT 31.2 % (35.4-49); HEMOGLOBIN 10.6 GM/dL (11.7-16.9); MCH 31.3 pg (25.7-33.7); MCHC 34.1 g/dl (32.0-35.9); MEAN CELL VOLUME 91.8 fl (80-96); MEAN PLT VOLUME 8.4 fl (7.5-11.1); PLATELET COUNT 293 10^3/uL (134-434); RDW 13.7 % (11.9-15.9); WHITE BLOOD COUNT 5.5 K/mm3 (4.0-10.0)
[2021-08-29] MEDS: MULTIVITAMINS (DAILY MVI) TABLET (FP) PO SCH (09:13)
[2021-08-29] MEDS: DOCUSATE SODIUM 100 MG CAPSULE (FP) PO SCH (09:13)
[2021-08-29] MEDS: ENOXAPARIN NA (PORCINE) 40 MG/0.4 ML DISP.SYRIN SQ SCH (09:13)
[2021-08-29] MEDS: POLYETHYLENE GLYCOL (HEALTHYLAX) 3350 17 GM PACKET PO SCH ×2 (09:13→22:15)
[2021-08-29 09:59] LABS: BLOOD UREA NITROGEN 21.9 mg/dL (7-18)
[2021-08-29 10:00] LABS: CALCIUM 8.2 mg/dL (8.5-10.1)
[2021-08-29 10:04] LABS: CREATININE 0.6 mg/dL (0.55-1.3)
[2021-08-29] MEDS: SENNOSIDES 8.6MG TABLET (FP) PO SCH (22:13)
[2021-08-30] MEDS: SODIUM CHLORIDE 1,000 ML IV SCH ×2 (06:39→17:13)
[2021-08-30] MEDS: CARBIDOPA/LEVODOPA 25/100 TABLET (FP) PO SCH ×3 (06:40→23:14)
[2021-08-30 09:06] LABS: HEMATOCRIT 31.7 % (35.4-49); HEMOGLOBIN 10.9 GM/dL (11.7-16.9); MCH 31.6 pg (25.7-33.7); MCHC 34.5 g/dl (32.0-35.9); MEAN CELL VOLUME 91.6 fl (80-96); PLATELET COUNT 315 10^3/uL (134-434); RBC 3.46 M/mm3 (4.00-5.60); RDW 13.4 % (11.9-15.9); WHITE BLOOD COUNT 5.5 K/mm3 (4.0-10.0)
[2021-08-30 09:27] LABS: CALCIUM 8.4 mg/dL (8.5-10.1)
[2021-08-30 09:28] LABS: BLOOD UREA NITROGEN 19.9 mg/dL (7-18)
[2021-08-30 09:31] LABS: CREATININE 0.6 mg/dL (0.55-1.3)
[2021-08-30] MEDS: MULTIVITAMINS (DAILY MVI) TABLET (FP) PO SCH (10:09)
[2021-08-30] MEDS: ENOXAPARIN NA (PORCINE) 40 MG/0.4 ML DISP.SYRIN SQ SCH (10:10)
[2021-08-30] MEDS: DOCUSATE SODIUM 100 MG CAPSULE (FP) PO SCH (10:10)
[2021-08-30] MEDS: POLYETHYLENE GLYCOL (HEALTHYLAX) 3350 17 GM PACKET PO SCH ×2 (10:10→23:14)
[2021-08-30] MEDS ORDERED: ACETAMINOPHEN 500 MG TABLET (FP) PO PRN (16:27)
[2021-08-30] MEDS: SENNOSIDES 8.6MG TABLET (FP) PO SCH (23:14)
[2021-08-31] MEDS: SODIUM CHLORIDE 1,000 ML IV SCH ×3 (03:21→15:15)
[2021-08-31] MEDS: CARBIDOPA/LEVODOPA 25/100 TABLET (FP) PO SCH ×3 (05:38→22:03)
[2021-08-31] MEDS: POLYETHYLENE GLYCOL (HEALTHYLAX) 3350 17 GM PACKET PO SCH ×2 (10:49→22:03)
[2021-08-31] MEDS: MULTIVITAMINS (DAILY MVI) TABLET (FP) PO SCH (10:49)
[2021-08-31] MEDS: DOCUSATE SODIUM 100 MG CAPSULE (FP) PO SCH (10:49)
[2021-08-31] MEDS: ENOXAPARIN NA (PORCINE) 40 MG/0.4 ML DISP.SYRIN SQ SCH (11:00)
[2021-08-31 11:42] LABS: HEMATOCRIT 29.7 % (35.4-49); HEMOGLOBIN 10.3 GM/dL (11.7-16.9); MCH 31.6 pg (25.7-33.7); MCHC 34.7 g/dl (32.0-35.9); MEAN CELL VOLUME 91.3 fl (80-96); MEAN PLT VOLUME 8.2 fl (7.5-11.1); PLATELET COUNT 349 10^3/uL (134-434); RBC 3.26 M/mm3 (4.00-5.60); RDW 13.1 % (11.9-15.9)
[2021-08-31 12:09] LABS: BLOOD UREA NITROGEN 18.2 mg/dL (7-18); CALCIUM 8.3 mg/dL (8.5-10.1)
[2021-08-31 12:14] LABS: CREATININE 0.7 mg/dL (0.55-1.3)
[2021-08-31] MEDS: SENNOSIDES 8.6MG TABLET (FP) PO SCH (22:03)
[2021-09-01] MEDS: SODIUM CHLORIDE 1,000 ML IV SCH ×2 (02:09→13:35)
[2021-09-01] MEDS: CARBIDOPA/LEVODOPA 25/100 TABLET (FP) PO SCH ×3 (06:23→21:56)
[2021-09-01 08:42] LABS: HEMATOCRIT 31.6 % (35.4-49); HEMOGLOBIN 10.7 GM/dL (11.7-16.9); MCH 30.8 pg (25.7-33.7); MCHC 33.9 g/dl (32.0-35.9); MEAN CELL VOLUME 90.8 fl (80-96); MEAN PLT VOLUME 7.9 fl (7.5-11.1); PLATELET COUNT 358 10^3/uL (134-434); RBC 3.48 M/mm3 (4.00-5.60); RDW 13.2 % (11.9-15.9); WHITE BLOOD COUNT 4.6 K/mm3 (4.0-10.0)
[2021-09-01 08:47] LABS: BLOOD UREA NITROGEN 17.5 mg/dL (7-18); CALCIUM 8.3 mg/dL (8.5-10.1)
[2021-09-01 08:51] LABS: CREATININE 0.6 mg/dL (0.55-1.3)
[2021-09-01] MEDS: POLYETHYLENE GLYCOL (HEALTHYLAX) 3350 17 GM PACKET PO SCH ×2 (10:07→21:55)
[2021-09-01] MEDS: MULTIVITAMINS (DAILY MVI) TABLET (FP) PO SCH (10:07)
[2021-09-01] MEDS: DOCUSATE SODIUM 100 MG CAPSULE (FP) PO SCH (10:07)
[2021-09-01] MEDS: ENOXAPARIN NA (PORCINE) 40 MG/0.4 ML DISP.SYRIN SQ SCH (10:07)
[2021-09-01] MEDS: SENNOSIDES 8.6MG TABLET (FP) PO SCH (21:55)
[2021-09-02] MEDS: CARBIDOPA/LEVODOPA 25/100 TABLET (FP) PO SCH ×3 (05:12→21:52)
[2021-09-02] MEDS: MULTIVITAMINS (DAILY MVI) TABLET (FP) PO SCH (09:56)
[2021-09-02] MEDS: ENOXAPARIN NA (PORCINE) 40 MG/0.4 ML DISP.SYRIN SQ SCH (09:56)
[2021-09-02] MEDS: DOCUSATE SODIUM 100 MG CAPSULE (FP) PO SCH (09:57)
[2021-09-02] MEDS: POLYETHYLENE GLYCOL (HEALTHYLAX) 3350 17 GM PACKET PO SCH ×2 (09:57→21:52)
[2021-09-02] MEDS: SENNOSIDES 8.6MG TABLET (FP) PO SCH (21:52)
[2021-09-03] MEDS: CARBIDOPA/LEVODOPA 25/100 TABLET (FP) PO SCH ×3 (06:18→21:33)
[2021-09-03] MEDS: ENOXAPARIN NA (PORCINE) 40 MG/0.4 ML DISP.SYRIN SQ SCH (10:13)
[2021-09-03] MEDS: POLYETHYLENE GLYCOL (HEALTHYLAX) 3350 17 GM PACKET PO SCH ×2 (10:13→21:33)
[2021-09-03] MEDS: DOCUSATE SODIUM 100 MG CAPSULE (FP) PO SCH (10:13)
[2021-09-03] MEDS: MULTIVITAMINS (DAILY MVI) TABLET (FP) PO SCH (10:14)
[2021-09-03] MEDS: SENNOSIDES 8.6MG TABLET (FP) PO SCH (21:33)
[2021-09-04] MEDS: CARBIDOPA/LEVODOPA 25/100 TABLET (FP) PO SCH ×3 (05:30→22:51)
[2021-09-04] MEDS: POLYETHYLENE GLYCOL (HEALTHYLAX) 3350 17 GM PACKET PO SCH ×2 (09:01→22:52)
[2021-09-04] MEDS: ENOXAPARIN NA (PORCINE) 40 MG/0.4 ML DISP.SYRIN SQ SCH (09:01)
[2021-09-04] MEDS: MULTIVITAMINS (DAILY MVI) TABLET (FP) PO SCH (09:01)
[2021-09-04] MEDS: DOCUSATE SODIUM 100 MG CAPSULE (FP) PO SCH (09:02)
[2021-09-04] MEDS: SENNOSIDES 8.6MG TABLET (FP) PO SCH (22:51)
[2021-09-05] MEDS: CARBIDOPA/LEVODOPA 25/100 TABLET (FP) PO SCH ×3 (05:13→23:29)
[2021-09-05] MEDS: ENOXAPARIN NA (PORCINE) 40 MG/0.4 ML DISP.SYRIN SQ SCH (09:12)
[2021-09-05] MEDS: DOCUSATE SODIUM 100 MG CAPSULE (FP) PO SCH (09:12)
[2021-09-05] MEDS: POLYETHYLENE GLYCOL (HEALTHYLAX) 3350 17 GM PACKET PO SCH ×2 (09:12→23:30)
[2021-09-05] MEDS: MULTIVITAMINS (DAILY MVI) TABLET (FP) PO SCH (09:13)
[2021-09-05] MEDS: SENNOSIDES 8.6MG TABLET (FP) PO SCH (23:30)
[2021-09-06] MEDS: CARBIDOPA/LEVODOPA 25/100 TABLET (FP) PO SCH ×2 (05:43→15:28)
[2021-09-06] MEDS: DOCUSATE SODIUM 100 MG CAPSULE (FP) PO SCH (11:28)
[2021-09-06] MEDS: POLYETHYLENE GLYCOL (HEALTHYLAX) 3350 17 GM PACKET PO SCH (11:28)
[2021-09-06 13:43] VITALS: BP 115/59; PULSE 73; TEMP 97.2
[2021-09-06] MEDS: ENOXAPARIN NA (PORCINE) 40 MG/0.4 ML DISP.SYRIN SQ SCH (15:28)
[2021-09-06] MEDS: MULTIVITAMINS (DAILY MVI) TABLET (FP) PO SCH (15:28)
== END 2021-09-06 20:25 | DRG 871 ==
LOC: JER 11:47 → JERBED 17:16 → J7W 23:36
PROVIDERS: ADMIT Internal Medicine; ATTEND Internal Medicine
PROC: 009U3ZZ Drainage of Spinal Canal, Percutaneous Approach (ICD-10-PCS; 2021-08-09)
PROC: B01BZZZ Fluoroscopy of Spinal Cord (ICD-10-PCS; 2021-08-09)
PROC: 009U3ZZ Drainage of Spinal Canal, Percutaneous Approach (ICD-10-PCS; principal; 2021-08-13)
PROC: B01BZZZ Fluoroscopy of Spinal Cord (ICD-10-PCS; 2021-08-13)
PROC: 4A10X4G Monitoring of Central Nervous Electrical Activity, Intraoperative, External Approach (ICD-10-PCS; 2021-08-16)
DX: A41.89 Other specified sepsis (principal); G03.8 Meningitis due to other specified causes; G93.41 Metabolic encephalopathy; N39.0 Urinary tract infection, site not specified; G31.09 Other frontotemporal neurocognitive disorder; F02.80 Dementia in other diseases classified elsewhere, unspecified severity, without behavioral disturbance, psychotic disturbance, mood disturbance, and anxiety; R50.9 Fever, unspecified; R31.9 Hematuria, unspecified; D72.829 Elevated white blood cell count, unspecified; R41.82 Altered mental status, unspecified; K59.00 Constipation, unspecified; B95.2 Enterococcus as the cause of diseases classified elsewhere; B96.5 Pseudomonas (aeruginosa) (mallei) (pseudomallei) as the cause of diseases classified elsewhere; I10 Essential (primary) hypertension; G20 Parkinson's disease; R70.0 Elevated erythrocyte sedimentation rate; L89.151 Pressure ulcer of sacral region, stage 1; L89.00 Pressure ulcer of unspecified elbow
CPT/HCPCS: 0241U-QW; 36415; 62272; 70450-TC; 70544-TC; 70551-TC; 71045-TC-FY; 74018-TC-FY; 80048; 80053; 81003; 82550; 82553; 82607; 82746; 82930; 82945; 82962; 83605; 83615; 83735; 84100; 84157; 84443; 84484; 85025; 85027; 85651; 86038; 86140; 86225; 86592; 86617; 86618; 86780; 87040; 87070; 87086; 87102; 87116; 87186; 87205; 87206; 87210; 87476; 87529; 87556; 87798; 93005; 93010; 93306-TC; 93970-TC; 95816; 97116-GP; 97162-GP; 99285-25; C9803-CS; J1100; U0003; U0005

== ENCOUNTER 2021-11-30 22:07 | Inpatient (IN) | payer OTHER ==
[2021-11-30 22:34] VITALS: BMI 22.4
[2021-11-30] MEDS ORDERED: ACETAMINOPHEN 1000 MG/100 ML BAG IVPB ONE (23:08)
[2021-11-30] MEDS ORDERED: ACETAMINOPHEN INJECTION 100 ML IVPB ONE (23:28)
[2021-12-01 00:18] LABS: BASO % 0.3 % (0-2.0); EOS % 0.1 % (0-4.5); HEMATOCRIT 41.5 % (35.4-49); LYMPH % 9.9 % (8-40); MCH 29.3 pg (25.7-33.7); MCHC 33.8 g/dl (32.0-35.9); MEAN CELL VOLUME 86.8 fl (80-96); MEAN PLT VOLUME 8.4 fl (7.5-11.1); MONO % 8.5 % (3.8-10.2); NEUT % 81.2 % (42.8-82.8); PLATELET COUNT 153 10^3/uL (134-434); RBC 4.78 M/mm3 (4.00-5.60); RDW 14.2 % (11.9-15.9); WHITE BLOOD COUNT 6.7 K/mm3 (4.0-10.0)
[2021-12-01 00:25] LABS: VENOUS BASE EXCESS 3.9 mmol/L (-2-2); VENOUS O2 SATURATION 16.7 % (70-80); VENOUS PCO2 56.2 mmHg (38-52)
[2021-12-01 00:27] LABS: INR 1.2 (0.83-1.09); PROTHROMBIN TIME (PATIENT) 13.8 SEC (9.7-13.0)
[2021-12-01 00:30] LABS: ACTIVATED PTT 29.4 SECONDS (25.2-36.5)
[2021-12-01 00:36] LABS: CALCIUM 9.1 mg/dL (8.5-10.1)
[2021-12-01 00:37] LABS: ALBUMIN 3.2 g/dl (3.4-5.0); BLOOD UREA NITROGEN 26.9 mg/dL (7-18)
[2021-12-01 00:42] LABS: BILIRUBIN,TOTAL 0.5 mg/dL (0.2-1)
[2021-12-01] MEDS ORDERED: REMDESIVIR 200 MG in SODIUM CHLORIDE 250 ML IVPB ONE ×2 (00:59→13:32)
[2021-12-01] MEDS ORDERED: VANCOMYCIN 1,000 MG in DEXTROSE 5%-WATER - 250 ML IVPB ONE (00:59)
[2021-12-01] MEDS ORDERED: VANCOMYCIN/WATER FOR INJ (PEG) 1,000 MG/200 ML BAG IVPB ONE (03:08)
[2021-12-01] MEDS ORDERED: SODIUM CHLORIDE 1,000 ML IV STA (03:42)
[2021-12-01 05:57] LABS: EPI CELLS 15 /uL (0-25.1); HYALINE CASTS 10 /uL (0-3.1); URINE APPEARANCE CLEAR; URINE BACTERIA 7 /uL (0-1359); URINE BILIRUBIN NEGATIVE (NEGATIVE); URINE COLOR YELLOW; URINE GLUCOSE (UA) NEGATIVE (NEGATIVE); URINE KETONE TRACE (NEGATIVE); URINE LEUK ESTERASE NEGATIVE (NEGATIVE); URINE NITRITE NEGATIVE (NEGATIVE); URINE PROTEIN TRACE (NEGATIVE); URINE WBC 15 /uL (0-25.8)
[2021-12-01 08:09] LABS: BLOOD UREA NITROGEN 28.8 mg/dL (7-18); CALCIUM 8.6 mg/dL (8.5-10.1)
[2021-12-01 08:10] LABS: ALBUMIN 2.9 g/dl (3.4-5.0); MAGNESIUM 2.2 mg/dL (1.8-2.4)
[2021-12-01 08:12] LABS: PHOSPHOROUS 3.8 mg/dL (2.5-4.9)
[2021-12-01 08:14] LABS: CREATININE 0.7 mg/dL (0.55-1.3)
[2021-12-01 08:15] LABS: BILIRUBIN,TOTAL 0.4 mg/dL (0.2-1); TOT PROT 6.2 g/dl (6.4-8.2)
[2021-12-01 08:16] LABS: BASO % 0.4 % (0-2.0); EOS % 0.5 % (0-4.5); HEMATOCRIT 40.7 % (35.4-49); HEMOGLOBIN 13.7 GM/dL (11.7-16.9); LYMPH % 14.5 % (8-40); MCH 29.3 pg (25.7-33.7); MCHC 33.6 g/dl (32.0-35.9); MEAN CELL VOLUME 87.1 fl (80-96); MEAN PLT VOLUME 8.7 fl (7.5-11.1); MONO % 9.5 % (3.8-10.2); NEUT % 75.1 % (42.8-82.8); PLATELET COUNT 135 10^3/uL (134-434); RBC 4.67 M/mm3 (4.00-5.60); RDW 14.4 % (11.9-15.9); WHITE BLOOD COUNT 6.7 K/mm3 (4.0-10.0)
[2021-12-01] MEDS ORDERED: POLYETHYLENE GLYCOL (HEALTHYLAX) 3350 17 GM PACKET ONE (09:04)
[2021-12-01] MEDS ORDERED: ENOXAPARIN NA (PORCINE) 40 MG/0.4 ML DISP.SYRIN SQ ONE (09:05)
[2021-12-01] MEDS ORDERED: PIPERACILLIN/TAZOB 3.375 GM 3.375 GM/50 ML BAG IVPB ONE (09:05)
[2021-12-01 09:16] LABS: URINE CRYSTALS CALCIUM OXALATE /hpf; URINE RBC 29 /uL (0-23.9)
[2021-12-01] MEDS: ENOXAPARIN NA (PORCINE) 40 MG/0.4 ML DISP.SYRIN SQ SCH (09:21)
[2021-12-01] MEDS: POLYETHYLENE GLYCOL (HEALTHYLAX) 3350 17 GM PACKET PO SCH ×2 (09:21→22:27)
[2021-12-01] MEDS ORDERED: PIPERACILLIN/TAZOB 3.375 GM 3.375 GM in DEXTROSE 5%-WATER - 50 ML IVPB ONE (10:00)
[2021-12-01] MEDS: CLOTRIMAZOLE 1%TOPICAL SOLUTION 30 ML BOTTLE TP SCH ×2 (11:15→23:47)
[2021-12-01] MEDS ORDERED: REMDESIVIR 100 MG in SODIUM CHLORIDE 250 ML IVPB SCH (13:45)
[2021-12-01] MEDS ORDERED: CARBIDOPA/LEVODOPA 25/100 TABLET (FP) ONE (13:51)
[2021-12-01] MEDS: CARBIDOPA/LEVODOPA 25/100 TABLET (FP) PO SCH ×2 (13:55→22:26)
[2021-12-01] MEDS ORDERED: CEFTRIAXONE 1 GM in DEXTROSE 5%-WATER - 50 ML IVPB SCH (14:00)
[2021-12-01] MEDS ORDERED: CEFEPIME 1 GM/100 ML BAG IVPB ONE (14:31)
[2021-12-01] MEDS: CEFEPIME 1 GM in DEXTROSE 5%-WATER 100 ML IVPB SCH ×2 (14:35→22:50)
[2021-12-01] MEDS ORDERED: ACETAMINOPHEN 1000 MG/100 ML BAG IVPB PRN (21:28)
[2021-12-01] MEDS: QUEtiapine FUMARATE 25 MG TABLET PO SCH (22:26)
[2021-12-01] MEDS: SENNOSIDES 8.6MG TABLET (FP) PO SCH (22:26)
[2021-12-01] MEDS: DONEPEZIL HCL 5 MG TABLET (FP) PO SCH (22:27)
[2021-12-02] MEDS ORDERED: VANCOMYCIN 1 GM/200 ML PREMIX BAG IVPB SCH (01:00)
[2021-12-02] MEDS ORDERED: VANCOMYCIN 1 GM/200 ML PREMIX BAG IVPB ONE (02:05)
[2021-12-02] MEDS: CARBIDOPA/LEVODOPA 25/100 TABLET (FP) PO SCH ×3 (06:55→21:25)
[2021-12-02] MEDS: CLOTRIMAZOLE 1%TOPICAL SOLUTION 30 ML BOTTLE TP SCH ×2 (10:46→21:25)
[2021-12-02] MEDS: ENOXAPARIN NA (PORCINE) 40 MG/0.4 ML DISP.SYRIN SQ SCH (10:46)
[2021-12-02] MEDS: POLYETHYLENE GLYCOL (HEALTHYLAX) 3350 17 GM PACKET PO SCH ×2 (10:46→21:26)
[2021-12-02] MEDS: CEFEPIME 1 GM in DEXTROSE 5%-WATER 100 ML IVPB SCH (10:47)
[2021-12-02] MEDS: REMDESIVIR 100 MG in SODIUM CHLORIDE 250 ML IVPB SCH (11:25)
[2021-12-02] MEDS: QUEtiapine FUMARATE 25 MG TABLET PO SCH (21:25)
[2021-12-02] MEDS: SENNOSIDES 8.6MG TABLET (FP) PO SCH (21:26)
[2021-12-02] MEDS: DONEPEZIL HCL 5 MG TABLET (FP) PO SCH (21:26)
[2021-12-03] MEDS ORDERED: VANCOMYCIN 1 GM/200 ML PREMIX BAG IVPB SCH ×2 (01:00→04:00)
[2021-12-03] MEDS: CARBIDOPA/LEVODOPA 25/100 TABLET (FP) PO SCH ×3 (05:43→22:25)
[2021-12-03] MEDS: REMDESIVIR 100 MG in SODIUM CHLORIDE 250 ML IVPB SCH (09:28)
[2021-12-03] MEDS: ENOXAPARIN NA (PORCINE) 40 MG/0.4 ML DISP.SYRIN SQ SCH (09:29)
[2021-12-03] MEDS: POLYETHYLENE GLYCOL (HEALTHYLAX) 3350 17 GM PACKET PO SCH ×2 (09:29→22:24)
[2021-12-03] MEDS: CLOTRIMAZOLE 1%TOPICAL SOLUTION 30 ML BOTTLE TP SCH ×2 (09:34→22:26)
[2021-12-03 09:42] LABS: HEMATOCRIT 37.8 % (35.4-49); HEMOGLOBIN 12.5 GM/dL (11.7-16.9); MCH 28.6 pg (25.7-33.7); MEAN CELL VOLUME 86.5 fl (80-96); MEAN PLT VOLUME 8.6 fl (7.5-11.1); PLATELET COUNT 167 10^3/uL (134-434); RBC 4.36 M/mm3 (4.00-5.60); RDW 14.3 % (11.9-15.9); WHITE BLOOD COUNT 5.1 K/mm3 (4.0-10.0)
[2021-12-03 10:13] LABS: CALCIUM 8.3 mg/dL (8.5-10.1)
[2021-12-03 10:14] LABS: ALBUMIN 2.6 g/dl (3.4-5.0); MAGNESIUM 2.1 mg/dL (1.8-2.4)
[2021-12-03 10:16] LABS: CREATININE 0.6 mg/dL (0.55-1.3); PHOSPHOROUS 2.9 mg/dL (2.5-4.9)
[2021-12-03 10:19] LABS: BILIRUBIN,TOTAL 0.4 mg/dL (0.2-1); TOT PROT 5.8 g/dl (6.4-8.2)
[2021-12-03] MEDS: SENNOSIDES 8.6MG TABLET (FP) PO SCH (22:25)
[2021-12-03] MEDS: QUEtiapine FUMARATE 25 MG TABLET PO SCH (22:25)
[2021-12-03] MEDS: DONEPEZIL HCL 5 MG TABLET (FP) PO SCH (22:25)
[2021-12-04] MEDS ORDERED: VANCOMYCIN 1 GM/200 ML PREMIX BAG IVPB SCH (04:00)
[2021-12-04] MEDS: CARBIDOPA/LEVODOPA 25/100 TABLET (FP) PO SCH ×3 (06:34→22:23)
[2021-12-04 08:58] LABS: HEMATOCRIT 37.4 % (35.4-49); HEMOGLOBIN 12.2 GM/dL (11.7-16.9); MCH 28.2 pg (25.7-33.7); MCHC 32.6 g/dl (32.0-35.9); MEAN CELL VOLUME 86.5 fl (80-96); MEAN PLT VOLUME 8.6 fl (7.5-11.1); PLATELET COUNT 172 10^3/uL (134-434); RBC 4.33 M/mm3 (4.00-5.60); RDW 14.5 % (11.9-15.9)
[2021-12-04 09:25] LABS: BLOOD UREA NITROGEN 30.6 mg/dL (7-18); CALCIUM 8.6 mg/dL (8.5-10.1)
[2021-12-04 09:29] LABS: CREATININE 0.6 mg/dL (0.55-1.3)
[2021-12-04] MEDS: ENOXAPARIN NA (PORCINE) 40 MG/0.4 ML DISP.SYRIN SQ SCH (09:54)
[2021-12-04] MEDS: POLYETHYLENE GLYCOL (HEALTHYLAX) 3350 17 GM PACKET PO SCH ×2 (09:54→22:26)
[2021-12-04] MEDS: CLOTRIMAZOLE 1%TOPICAL SOLUTION 30 ML BOTTLE TP SCH ×2 (10:30→22:46)
[2021-12-04] MEDS: SENNOSIDES 8.6MG TABLET (FP) PO SCH (22:23)
[2021-12-04] MEDS: DONEPEZIL HCL 5 MG TABLET (FP) PO SCH (22:23)
[2021-12-04] MEDS: QUEtiapine FUMARATE 25 MG TABLET PO SCH (22:23)
[2021-12-05 07:31] LABS: HEMATOCRIT 36.6 % (35.4-49); HEMOGLOBIN 12.1 GM/dL (11.7-16.9); MCH 28.5 pg (25.7-33.7); MEAN CELL VOLUME 86.5 fl (80-96); MEAN PLT VOLUME 8.3 fl (7.5-11.1); PLATELET COUNT 200 10^3/uL (134-434); RBC 4.23 M/mm3 (4.00-5.60); RDW 14.3 % (11.9-15.9)
[2021-12-05 07:53] LABS: BLOOD UREA NITROGEN 27.1 mg/dL (7-18); CALCIUM 8.5 mg/dL (8.5-10.1); MAGNESIUM 2.3 mg/dL (1.8-2.4)
[2021-12-05 07:54] LABS: ALBUMIN 2.5 g/dl (3.4-5.0)
[2021-12-05 07:56] LABS: BILIRUBIN,TOTAL 0.5 mg/dL (0.2-1); CREATININE 0.6 mg/dL (0.55-1.3); TOT PROT 5.6 g/dl (6.4-8.2)
[2021-12-05] MEDS: CLOTRIMAZOLE 1%TOPICAL SOLUTION 30 ML BOTTLE TP SCH ×2 (10:22→22:13)
[2021-12-05] MEDS: ENOXAPARIN NA (PORCINE) 40 MG/0.4 ML DISP.SYRIN SQ SCH (10:22)
[2021-12-05] MEDS: CARBIDOPA/LEVODOPA 25/100 TABLET (FP) PO SCH ×3 (10:23→22:14)
[2021-12-05] MEDS: POLYETHYLENE GLYCOL (HEALTHYLAX) 3350 17 GM PACKET PO SCH ×2 (10:23→22:13)
[2021-12-05] MEDS: QUEtiapine FUMARATE 25 MG TABLET PO SCH (22:12)
[2021-12-05] MEDS: SENNOSIDES 8.6MG TABLET (FP) PO SCH (22:13)
[2021-12-05] MEDS: DONEPEZIL HCL 5 MG TABLET (FP) PO SCH (22:13)
[2021-12-06] MEDS: CARBIDOPA/LEVODOPA 25/100 TABLET (FP) PO SCH ×3 (05:34→21:42)
[2021-12-06 07:51] LABS: HEMATOCRIT 35.7 % (35.4-49); HEMOGLOBIN 11.9 GM/dL (11.7-16.9); MCH 28.7 pg (25.7-33.7); MCHC 33.3 g/dl (32.0-35.9); MEAN CELL VOLUME 86.4 fl (80-96); MEAN PLT VOLUME 8.2 fl (7.5-11.1); PLATELET COUNT 215 10^3/uL (134-434); RBC 4.13 M/mm3 (4.00-5.60); RDW 14.2 % (11.9-15.9); WHITE BLOOD COUNT 5.3 K/mm3 (4.0-10.0)
[2021-12-06 08:15] LABS: ALBUMIN 2.4 g/dl (3.4-5.0)
[2021-12-06 08:16] LABS: BLOOD UREA NITROGEN 23.4 mg/dL (7-18)
[2021-12-06 08:17] LABS: CALCIUM 8.3 mg/dL (8.5-10.1)
[2021-12-06 08:18] LABS: CREATININE 0.5 mg/dL (0.55-1.3); MAGNESIUM 2.2 mg/dL (1.8-2.4)
[2021-12-06 08:19] LABS: PHOSPHOROUS 2.9 mg/dL (2.5-4.9)
[2021-12-06 08:20] LABS: TOT PROT 5.7 g/dl (6.4-8.2)
[2021-12-06 08:22] LABS: BILIRUBIN,TOTAL 0.5 mg/dL (0.2-1)
[2021-12-06] MEDS: POLYETHYLENE GLYCOL (HEALTHYLAX) 3350 17 GM PACKET PO SCH ×2 (09:43→22:11)
[2021-12-06] MEDS: CLOTRIMAZOLE 1%TOPICAL SOLUTION 30 ML BOTTLE TP SCH ×2 (09:43→22:11)
[2021-12-06] MEDS: ENOXAPARIN NA (PORCINE) 40 MG/0.4 ML DISP.SYRIN SQ SCH (09:43)
[2021-12-06] MEDS: DONEPEZIL HCL 5 MG TABLET (FP) PO SCH (21:40)
[2021-12-06] MEDS: SENNOSIDES 8.6MG TABLET (FP) PO SCH (21:40)
[2021-12-06] MEDS: QUEtiapine FUMARATE 25 MG TABLET PO SCH (21:40)
[2021-12-07] MEDS: CARBIDOPA/LEVODOPA 25/100 TABLET (FP) PO SCH ×3 (06:12→22:08)
[2021-12-07 09:08] LABS: HEMATOCRIT 34.7 % (35.4-49); HEMOGLOBIN 11.5 GM/dL (11.7-16.9); MCH 28.6 pg (25.7-33.7); MCHC 33.1 g/dl (32.0-35.9); MEAN CELL VOLUME 86.3 fl (80-96); MEAN PLT VOLUME 8.3 fl (7.5-11.1); PLATELET COUNT 234 10^3/uL (134-434); RBC 4.01 M/mm3 (4.00-5.60); RDW 14.3 % (11.9-15.9); WHITE BLOOD COUNT 5.6 K/mm3 (4.0-10.0)
[2021-12-07] MEDS: POLYETHYLENE GLYCOL (HEALTHYLAX) 3350 17 GM PACKET PO SCH ×2 (09:08→22:10)
[2021-12-07] MEDS: ENOXAPARIN NA (PORCINE) 40 MG/0.4 ML DISP.SYRIN SQ SCH (09:08)
[2021-12-07] MEDS: CLOTRIMAZOLE 1%TOPICAL SOLUTION 30 ML BOTTLE TP SCH ×2 (09:08→22:07)
[2021-12-07 09:16] LABS: CALCIUM 8.2 mg/dL (8.5-10.1)
[2021-12-07 09:17] LABS: ALBUMIN 2.4 g/dl (3.4-5.0); BLOOD UREA NITROGEN 22.2 mg/dL (7-18); MAGNESIUM 2.3 mg/dL (1.8-2.4)
[2021-12-07 09:20] LABS: CREATININE 0.6 mg/dL (0.55-1.3); PHOSPHOROUS 2.7 mg/dL (2.5-4.9)
[2021-12-07 09:22] LABS: BILIRUBIN,TOTAL 0.5 mg/dL (0.2-1); TOT PROT 5.6 g/dl (6.4-8.2)
[2021-12-07] MEDS: SENNOSIDES 8.6MG TABLET (FP) PO SCH (22:07)
[2021-12-07] MEDS: DONEPEZIL HCL 5 MG TABLET (FP) PO SCH (22:07)
[2021-12-07] MEDS: QUEtiapine FUMARATE 25 MG TABLET PO SCH (22:07)
[2021-12-08] MEDS: CARBIDOPA/LEVODOPA 25/100 TABLET (FP) PO SCH ×3 (06:37→22:01)
[2021-12-08 08:15] LABS: HEMATOCRIT 35.4 % (35.4-49); HEMOGLOBIN 11.6 GM/dL (11.7-16.9); MCH 28.4 pg (25.7-33.7); MCHC 32.8 g/dl (32.0-35.9); MEAN CELL VOLUME 86.5 fl (80-96); MEAN PLT VOLUME 7.9 fl (7.5-11.1); PLATELET COUNT 274 10^3/uL (134-434); RBC 4.09 M/mm3 (4.00-5.60); RDW 14.3 % (11.9-15.9); WHITE BLOOD COUNT 5.6 K/mm3 (4.0-10.0)
[2021-12-08 08:42] LABS: CALCIUM 8.8 mg/dL (8.5-10.1)
[2021-12-08 08:43] LABS: ALBUMIN 2.5 g/dl (3.4-5.0); BLOOD UREA NITROGEN 23.9 mg/dL (7-18); MAGNESIUM 2.3 mg/dL (1.8-2.4)
[2021-12-08 08:45] LABS: CREATININE 0.7 mg/dL (0.55-1.3)
[2021-12-08 08:47] LABS: BILIRUBIN,TOTAL 0.4 mg/dL (0.2-1); TOT PROT 5.7 g/dl (6.4-8.2)
[2021-12-08] MEDS: ZINC SULFATE 220 MG CAPSULE (FP) PO SCH (10:50)
[2021-12-08] MEDS: MULTIVITAMINS THER W-MINERALS COMBO TABLET (FP) PO SCH (10:50)
[2021-12-08] MEDS: POLYETHYLENE GLYCOL (HEALTHYLAX) 3350 17 GM PACKET PO SCH ×2 (10:50→22:00)
[2021-12-08] MEDS: CLOTRIMAZOLE 1%TOPICAL SOLUTION 30 ML BOTTLE TP SCH ×2 (10:51→22:01)
[2021-12-08] MEDS: ASCORBIC ACID 250 MG TABLET (FP) PO SCH (10:51)
[2021-12-08] MEDS: ENOXAPARIN NA (PORCINE) 40 MG/0.4 ML DISP.SYRIN SQ SCH (17:04)
[2021-12-08] MEDS: SENNOSIDES 8.6MG TABLET (FP) PO SCH (22:00)
[2021-12-08] MEDS: QUEtiapine FUMARATE 25 MG TABLET PO SCH (22:01)
[2021-12-08] MEDS: DONEPEZIL HCL 5 MG TABLET (FP) PO SCH (22:01)
[2021-12-09] MEDS: CARBIDOPA/LEVODOPA 25/100 TABLET (FP) PO SCH ×3 (06:29→21:31)
[2021-12-09 07:49] LABS: BASO % 0.4 % (0-2.0); EOS % 2.6 % (0-4.5); HEMATOCRIT 37.5 % (35.4-49); LYMPH % 19.6 % (8-40); MCH 28.2 pg (25.7-33.7); MEAN CELL VOLUME 88.1 fl (80-96); MEAN PLT VOLUME 8.2 fl (7.5-11.1); MONO % 8.8 % (3.8-10.2); NEUT % 68.6 % (42.8-82.8); PLATELET COUNT 262 10^3/uL (134-434); RBC 4.26 M/mm3 (4.00-5.60); RDW 14.4 % (11.9-15.9); WHITE BLOOD COUNT 5.8 K/mm3 (4.0-10.0)
[2021-12-09 08:22] LABS: BLOOD UREA NITROGEN 21.6 mg/dL (7-18); CALCIUM 8.7 mg/dL (8.5-10.1); MAGNESIUM 2.5 mg/dL (1.8-2.4)
[2021-12-09 08:23] LABS: ALBUMIN 2.6 g/dl (3.4-5.0)
[2021-12-09 08:26] LABS: CREATININE 0.7 mg/dL (0.55-1.3); PHOSPHOROUS 2.8 mg/dL (2.5-4.9)
[2021-12-09 08:27] LABS: BILIRUBIN,TOTAL 0.4 mg/dL (0.2-1)
[2021-12-09] MEDS: ENOXAPARIN NA (PORCINE) 40 MG/0.4 ML DISP.SYRIN SQ SCH (10:28)
[2021-12-09] MEDS: ASCORBIC ACID 250 MG TABLET (FP) PO SCH (10:29)
[2021-12-09] MEDS: POLYETHYLENE GLYCOL (HEALTHYLAX) 3350 17 GM PACKET PO SCH ×2 (10:29→21:32)
[2021-12-09] MEDS: CLOTRIMAZOLE 1%TOPICAL SOLUTION 30 ML BOTTLE TP SCH ×2 (10:29→21:31)
[2021-12-09] MEDS: ZINC SULFATE 220 MG CAPSULE (FP) PO SCH (10:29)
[2021-12-09] MEDS: MULTIVITAMINS THER W-MINERALS COMBO TABLET (FP) PO SCH (10:29)
[2021-12-09] MEDS: SENNOSIDES 8.6MG TABLET (FP) PO SCH (21:31)
[2021-12-09] MEDS: DONEPEZIL HCL 5 MG TABLET (FP) PO SCH (21:31)
[2021-12-09] MEDS: QUEtiapine FUMARATE 25 MG TABLET PO SCH (21:31)
[2021-12-10] MEDS: CARBIDOPA/LEVODOPA 25/100 TABLET (FP) PO SCH ×3 (05:38→21:42)
[2021-12-10 07:26] LABS: BASO % 0.4 % (0-2.0); EOS % 1.3 % (0-4.5); HEMATOCRIT 35.9 % (35.4-49); HEMOGLOBIN 12.2 GM/dL (11.7-16.9); LYMPH % 11.4 % (8-40); MCH 29.5 pg (25.7-33.7); MCHC 34.1 g/dl (32.0-35.9); MEAN CELL VOLUME 86.5 fl (80-96); MEAN PLT VOLUME 7.4 fl (7.5-11.1); MONO % 6.5 % (3.8-10.2); NEUT % 80.4 % (42.8-82.8); PLATELET COUNT 277 10^3/uL (134-434); RBC 4.15 M/mm3 (4.00-5.60); RDW 14.4 % (11.9-15.9); WHITE BLOOD COUNT 8.1 K/mm3 (4.0-10.0)
[2021-12-10 07:43] LABS: ALBUMIN 2.7 g/dl (3.4-5.0); BLOOD UREA NITROGEN 17.5 mg/dL (7-18); CALCIUM 8.8 mg/dL (8.5-10.1); MAGNESIUM 2.5 mg/dL (1.8-2.4)
[2021-12-10 07:46] LABS: CREATININE 0.7 mg/dL (0.55-1.3); PHOSPHOROUS 3.1 mg/dL (2.5-4.9)
[2021-12-10 07:48] LABS: BILIRUBIN,TOTAL 0.5 mg/dL (0.2-1)
[2021-12-10] MEDS: ENOXAPARIN NA (PORCINE) 40 MG/0.4 ML DISP.SYRIN SQ SCH (10:29)
[2021-12-10] MEDS: POLYETHYLENE GLYCOL (HEALTHYLAX) 3350 17 GM PACKET PO SCH ×2 (10:29→21:42)
[2021-12-10] MEDS: ZINC SULFATE 220 MG CAPSULE (FP) PO SCH (10:29)
[2021-12-10] MEDS: CLOTRIMAZOLE 1%TOPICAL SOLUTION 30 ML BOTTLE TP SCH ×2 (10:29→21:43)
[2021-12-10] MEDS: MULTIVITAMINS THER W-MINERALS COMBO TABLET (FP) PO SCH (10:29)
[2021-12-10] MEDS: ASCORBIC ACID 250 MG TABLET (FP) PO SCH (10:29)
[2021-12-10] MEDS: DONEPEZIL HCL 5 MG TABLET (FP) PO SCH (21:41)
[2021-12-10] MEDS: QUEtiapine FUMARATE 25 MG TABLET PO SCH (21:41)
[2021-12-10] MEDS: SENNOSIDES 8.6MG TABLET (FP) PO SCH (21:42)
[2021-12-11] MEDS: CARBIDOPA/LEVODOPA 25/100 TABLET (FP) PO SCH ×3 (05:41→22:16)
[2021-12-11 07:07] LABS: HEMATOCRIT 36.2 % (35.4-49); HEMOGLOBIN 12.3 GM/dL (11.7-16.9); MCH 29.5 pg (25.7-33.7); MEAN CELL VOLUME 86.5 fl (80-96); MEAN PLT VOLUME 7.6 fl (7.5-11.1); PLATELET COUNT 271 10^3/uL (134-434); RBC 4.19 M/mm3 (4.00-5.60); RDW 14.3 % (11.9-15.9); WHITE BLOOD COUNT 6.5 K/mm3 (4.0-10.0)
[2021-12-11 07:40] LABS: BLOOD UREA NITROGEN 18.4 mg/dL (7-18); CALCIUM 9.1 mg/dL (8.5-10.1)
[2021-12-11 07:41] LABS: ALBUMIN 2.8 g/dl (3.4-5.0); MAGNESIUM 2.7 mg/dL (1.8-2.4)
[2021-12-11 07:42] LABS: PHOSPHOROUS 3.1 mg/dL (2.5-4.9)
[2021-12-11 07:43] LABS: BILIRUBIN,TOTAL 0.4 mg/dL (0.2-1); CREATININE 0.7 mg/dL (0.55-1.3)
[2021-12-11 07:44] LABS: TOT PROT 6.3 g/dl (6.4-8.2)
[2021-12-11] MEDS ORDERED: DEXTROSE 50%-WATER - 25 GM/50 ML VIAL IVPUSH ONE (08:59)
[2021-12-11] MEDS ORDERED: INSULIN (NOVOLOG) ASPART 100 UNITS/ML 10ML VIAL SQ ONE (08:59)
[2021-12-11] MEDS ORDERED: SODIUM CHLORIDE 1,000 ML IV SCH (09:15)
[2021-12-11] MEDS: ENOXAPARIN NA (PORCINE) 40 MG/0.4 ML DISP.SYRIN SQ SCH (09:55)
[2021-12-11] MEDS: ZINC SULFATE 220 MG CAPSULE (FP) PO SCH (09:55)
[2021-12-11] MEDS: POLYETHYLENE GLYCOL (HEALTHYLAX) 3350 17 GM PACKET PO SCH ×2 (09:55→22:14)
[2021-12-11] MEDS: CLOTRIMAZOLE 1%TOPICAL SOLUTION 30 ML BOTTLE TP SCH ×2 (09:55→22:15)
[2021-12-11] MEDS: MULTIVITAMINS THER W-MINERALS COMBO TABLET (FP) PO SCH (09:55)
[2021-12-11] MEDS: ASCORBIC ACID 250 MG TABLET (FP) PO SCH (09:55)
[2021-12-11] MEDS ORDERED: DEXTROSE 50%-WATER 25 GM/50 ML DISP.SYRIN ONE (09:59)
[2021-12-11 10:53] VITALS: RESP 18
[2021-12-11] MEDS: SODIUM ZIRCONIUM CYCLOSILICATE (LOKELMA) 5 GM PACKET PO SCH (12:09)
[2021-12-11] MEDS: QUEtiapine FUMARATE 25 MG TABLET PO SCH (22:14)
[2021-12-11] MEDS: DONEPEZIL HCL 5 MG TABLET (FP) PO SCH (22:14)
[2021-12-11] MEDS: SENNOSIDES 8.6MG TABLET (FP) PO SCH (22:14)
[2021-12-12] MEDS: CARBIDOPA/LEVODOPA 25/100 TABLET (FP) PO SCH ×3 (07:00→22:50)
[2021-12-12 07:44] LABS: HEMOGLOBIN 11.9 GM/dL (11.7-16.9); MCH 28.5 pg (25.7-33.7); MCHC 33.1 g/dl (32.0-35.9); MEAN CELL VOLUME 86.1 fl (80-96); PLATELET COUNT 283 10^3/uL (134-434); RBC 4.19 M/mm3 (4.00-5.60); RDW 14.1 % (11.9-15.9); WHITE BLOOD COUNT 5.4 K/mm3 (4.0-10.0)
[2021-12-12 08:09] LABS: ALBUMIN 2.6 g/dl (3.4-5.0); BLOOD UREA NITROGEN 15.6 mg/dL (7-18); CALCIUM 8.9 mg/dL (8.5-10.1)
[2021-12-12 08:10] LABS: MAGNESIUM 2.3 mg/dL (1.8-2.4)
[2021-12-12 08:12] LABS: BILIRUBIN,TOTAL 0.3 mg/dL (0.2-1); CREATININE 0.7 mg/dL (0.55-1.3); PHOSPHOROUS 3.1 mg/dL (2.5-4.9)
[2021-12-12] MEDS: CLOTRIMAZOLE 1%TOPICAL SOLUTION 30 ML BOTTLE TP SCH ×2 (11:08→22:50)
[2021-12-12] MEDS: POLYETHYLENE GLYCOL (HEALTHYLAX) 3350 17 GM PACKET PO SCH ×2 (11:08→22:48)
[2021-12-12] MEDS: SODIUM ZIRCONIUM CYCLOSILICATE (LOKELMA) 5 GM PACKET PO SCH (11:08)
[2021-12-12] MEDS: ENOXAPARIN NA (PORCINE) 40 MG/0.4 ML DISP.SYRIN SQ SCH (11:09)
[2021-12-12] MEDS: MULTIVITAMINS THER W-MINERALS COMBO TABLET (FP) PO SCH (11:09)
[2021-12-12] MEDS: ZINC SULFATE 220 MG CAPSULE (FP) PO SCH (11:09)
[2021-12-12] MEDS: ASCORBIC ACID 250 MG TABLET (FP) PO SCH (11:09)
[2021-12-12] MEDS: AMINO ACIDS/PROTEIN HYDROLYS 30 ML LIQUID.PKT PO SCH (21:00)
[2021-12-12] MEDS: QUEtiapine FUMARATE 25 MG TABLET PO SCH (22:48)
[2021-12-12] MEDS: SENNOSIDES 8.6MG TABLET (FP) PO SCH (22:50)
[2021-12-12] MEDS: DONEPEZIL HCL 5 MG TABLET (FP) PO SCH (22:50)
[2021-12-13] MEDS: CARBIDOPA/LEVODOPA 25/100 TABLET (FP) PO SCH ×2 (06:10→14:24)
[2021-12-13] MEDS: AMINO ACIDS/PROTEIN HYDROLYS 30 ML LIQUID.PKT PO SCH (07:16)
[2021-12-13 08:53] LABS: HEMOGLOBIN 11.8 GM/dL (11.7-16.9); MCH 29.6 pg (25.7-33.7); MCHC 33.9 g/dl (32.0-35.9); MEAN CELL VOLUME 87.3 fl (80-96); MEAN PLT VOLUME 7.8 fl (7.5-11.1); PLATELET COUNT 264 10^3/uL (134-434); RDW 14.4 % (11.9-15.9); WHITE BLOOD COUNT 4.8 K/mm3 (4.0-10.0)
[2021-12-13 09:39] LABS: BLOOD UREA NITROGEN 16.9 mg/dL (7-18); PHOSPHOROUS 3.5 mg/dL (2.5-4.9)
[2021-12-13 09:40] LABS: ALBUMIN 2.7 g/dl (3.4-5.0); BILIRUBIN,TOTAL 0.3 mg/dL (0.2-1); TOT PROT 5.9 g/dl (6.4-8.2)
[2021-12-13] MEDS: ENOXAPARIN NA (PORCINE) 40 MG/0.4 ML DISP.SYRIN SQ SCH (09:40)
[2021-12-13] MEDS: POLYETHYLENE GLYCOL (HEALTHYLAX) 3350 17 GM PACKET PO SCH (09:40)
[2021-12-13] MEDS: SODIUM ZIRCONIUM CYCLOSILICATE (LOKELMA) 5 GM PACKET PO SCH (09:41)
[2021-12-13] MEDS: ASCORBIC ACID 250 MG TABLET (FP) PO SCH (09:41)
[2021-12-13] MEDS: ZINC SULFATE 220 MG CAPSULE (FP) PO SCH (09:41)
[2021-12-13] MEDS: MULTIVITAMINS THER W-MINERALS COMBO TABLET (FP) PO SCH (09:41)
[2021-12-13] MEDS: CLOTRIMAZOLE 1%TOPICAL SOLUTION 30 ML BOTTLE TP SCH (09:41)
[2021-12-13 09:43] LABS: CREATININE 0.7 mg/dL (0.55-1.3)
[2021-12-13 09:46] LABS: MAGNESIUM 2.4 mg/dL (1.8-2.4)
[2021-12-13 10:19] VITALS: TEMP 98
[2021-12-13 15:25] VITALS: BP 136/67; PULSE 65
== END 2021-12-13 15:30 | disposition home or self-care (01) | DRG 177 ==
LOC: JER 22:07 → JERBED 12-01 02:26 → J5S 12-01 17:46 → J4W 12-04 01:03
PROVIDERS: ADMIT Internal Medicine; ATTEND Internal Medicine
PROC: XW033E5 Introduction of Remdesivir Anti-infective into Peripheral Vein, Percutaneous Approach, New Technology Group 5 (ICD-10-PCS; principal; 2021-12-01)
DX: U07.1 COVID-19 (principal); G93.41 Metabolic encephalopathy; L03.116 Cellulitis of left lower limb; R64 Cachexia; G20 Parkinson's disease; I10 Essential (primary) hypertension; R32 Unspecified urinary incontinence; L89.202 Pressure ulcer of unspecified hip, stage 2; B35.6 Tinea cruris; G31.09 Other frontotemporal neurocognitive disorder; F02.80 Dementia in other diseases classified elsewhere, unspecified severity, without behavioral disturbance, psychotic disturbance, mood disturbance, and anxiety; R41.82 Altered mental status, unspecified; Z68.22 Body mass index [BMI] 22.0-22.9, adult
CPT/HCPCS: 0241U-QW; 36415; 70450-TC; 71045-TC-FY; 73502-TC-LT-FY; 80048; 80053; 81003; 82553; 82803; 82962; 83605; 83735; 84100; 84484; 85025; 85027; 85610; 85730; 86850; 86900; 86901; 87040; 87086; 93005; 93010; 97162-GP; 99285-25; C9399; C9803-CS; U0003; U0005